=== PATIENT | male | born 1940 | race Caucasian/White ===

== ENCOUNTER 2018-07-23 08:22 | Inpatient (IN) | payer MEDICARE, OTHER ==
--- NOTE | 2018-07-15 16:46 | HP ---
HISTORY AND PHYSICAL: DATE OF ADMISSION/SURGERY: 07/23/18 DATE OF OFFICE VISIT: 07/15/18 SURGEON: Laura Suarez MD * (DICTATED BY PATTY OLVERA) PROCEDURE: Left total knee arthroplasty. CHIEF COMPLAINT: Left knee pain. HISTORY OF PRESENT ILLNESS: Mr. Carcamo is a 77-year-old gentleman with continued complaints of left knee pain. He has failed conservative treatment and elected to proceed with a left total knee arthroplasty. PAST MEDICAL HISTORY: Hypertension. PAST SURGICAL HISTORY: Left knee scope x2, right Achilles tendon repair, and nasal surgery. CURRENT MEDICATIONS: 1. Valsartan/hydrochlorothiazide 160/12.5 mg 2 tabs daily. 2. Amlodipine 5 mg a day. 3. Iron slow release. ALLERGIES: No known drug allergies. FAMILY HISTORY: Cancer. SOCIAL HISTORY: He is a 77-year-old gentleman, lives at [facility]. He does not smoke or use drugs. REVIEW OF SYSTEMS: A complete 14-point review of systems was reviewed with the patient. It was all negative or noncontributory. He denies history of DVT, PE , hepatitis, HIV, or anesthesia problems. PHYSICAL EXAMINATION GENERAL: He is well developed, well nourished, in no acute distress. He is alert and oriented x3. Pleasant mood and appropriate affect. VITAL SIGNS: He stands 73 inches tall, weighs 203 pounds. His blood pressure is 128/62, his heart rate is 72. MUSCULOSKELETAL: Left lower extremity: The skin is intact. There are no open wounds or abrasions. There is a moderate joint effusion of the left knee, some tenderness over the medial and lateral joint line. Range of motion is 5 to 115 degrees of flexion. He has a 2+ dorsalis pedis pulse. He is able to dorsiflex and plantarflex and he has intact sensation. ASSESSMENT AND PLAN: Mr. Carcamo is a 77-year-old gentleman with end-stage osteoarthritis of the left knee. He has failed conservative treatment and elected to proceed with a left total knee arthroplasty. The surgery is scheduled for 07/23/[address] Suarez discussed the risks and benefits of the surgery at today's visit and all of his questions were answered. He will follow up with Dr. Suarez 2 weeks after the surgery. PATTY OLVERA [id number]/[facility] #: [id number] UNITED HEALTH SERVICESRaegan
[~2018-07-23 08:22] MED LIST: Acetaminophen TAB* 325 MG PO ONE; Buffered Lidocaine 1% SYRIN* 1 ML/SYRINGE INTRADERM ONE; Famotidine IV* 10 MG/ML 2 ML (20 mg) IV ONE; Gabapentin CAP(*) 300 MG PO ONE; Lactated Ringers 1000 ML Bag* 1,000 ML IV SCH; Tranexamic Acid 1,000 MG in NS 0.9% 50 ML* (outpatient use) IV SCH; celeCOXIB CAP* 200 MG PO ONE
[2018-07-23] MEDS ORDERED: Famotidine IV* 10 MG/ML 2 ML (20 mg) ONE (08:49)
[2018-07-23] MEDS ORDERED: celeCOXIB CAP* 100 MG ONE (08:49)
[2018-07-23] MEDS ORDERED: Gabapentin CAP(*) 300 MG ONE (08:49)
[2018-07-23] MEDS ORDERED: Acetaminophen TAB* 325 MG ONE (08:49)
[2018-07-23] MEDS ORDERED: Dexamethasone IV* 4 MG/ML 1 ML (4 MG) ONE (08:54)
[2018-07-23] MEDS ORDERED: Propofol* 10 MG/ML 20 ML BTL ONE (08:54)
[2018-07-23] MEDS ORDERED: ROPIVACAINE 5 MG/ML 30 ML BTL (0.5%) ONE ×2 (08:54→10:47)
[2018-07-23] MEDS ORDERED: Ondansetron INJ* 2 MG/ML VIAL ONE (08:54)
[2018-07-23] MEDS ORDERED: fentaNYL* 50 MCG/ML 2 ML VIAL (100 MCG VIAL) ONE (08:54)
[2018-07-23] MEDS ORDERED: KETAMINE HCL* 50 MG/ML 10 ML VIAL ONE (08:54)
[2018-07-23] MEDS ORDERED: Lidocaine 2% PF * 5 ML VIAL ONE (08:54)
[2018-07-23] MEDS ORDERED: Midazolam* 1 MG/ML 10 ML VIAL (10 MG) ONE (08:55)
[2018-07-23] MEDS ORDERED: fentaNYL* 50 MCG/ML 2 ML VIAL (100 MCG VIAL) IV PRN (12:34)
[2018-07-23] MEDS ORDERED: Naloxone* 0.4 MG/ML 1 ML VIAL IV PRN (12:34)
[2018-07-23] MEDS ORDERED: Ondansetron INJ* 2 MG/ML VIAL IV PRN ×2 (12:34→13:43)
[2018-07-23] MEDS ORDERED: Cyclobenzaprine TAB* 10 MG PO PRN (13:43)
[2018-07-23] MEDS ORDERED: Magnesium Hydroxide LIQ* 30 ML UDC PO PRN (13:43)
[2018-07-23] MEDS ORDERED: Ondansetron TAB* 4 MG PO PRN (13:43)
[2018-07-23] MEDS ORDERED: oxyCODONE/Acetamin 5/325 MG* TAB PO PRN (13:43)
[2018-07-23] MEDS ORDERED: Bisacodyl SUPP* 10 MG SUPP PR PRN (13:43)
[2018-07-23] MEDS ORDERED: Morphine INJ* 2 MG/ML 1 ML SYRINGE (TWO MG - NEW SYRINGE VERSION) IV PRN (13:43)
[2018-07-23] MEDS ORDERED: Polyethylene Glycol 3350* 17 GM PACKET PO PRN (13:43)
[2018-07-23] MEDS ORDERED: diPHENhydraMINE IV* 50 MG/ML 1 ml VIAL (BENADRYL) IV PRN (13:43)
[2018-07-23] MEDS ORDERED: ceFAZolin 1 GM ADVAN(*) 1 GM in NS 0.9% 50 ML* 50 ML IVPB SCH (14:00)
--- NOTE | 2018-07-23 14:24 | CONSULT ---
Subjective Date of Service: 07/23/18 Interval History: Solo Carcamo is a 77 yo white male with significant PMHx of HTN who is postop day 0 s/p left total knee arthroplasty. He failed outpatient conservative management of severe osteoarthritis of left knee and therefore elected to have surgery. Hospital medicine was consulted for comanagement of his chronic medical conditions. Patient is in the PACU and is feeling well. He denies SOB, chest pain, visual changes, headache, and palpitations. Family History: Findings - Both father and mother with history of colon CA. Mother with hx of HTN. Social History: Findings - Patient is a retired employee of [employer]. Denies tobacco/alcohol/drug use. Past Medical History: Findings - Hypertension, osteoarthritis, iron deficiency anemia, BPH Review of Systems - Measurements Intake and Output: Intake and Output Last 24 Hours 07/21/18 07/22/18 07/23/18 07/24/18 06:59 06:59 06:59 06:59 Intake Total 1800 Output Total 650 Balance 1150 Weight 201 lb 9.6 oz Intake: IV Fluids 1800 LR 1800 Output: Hernandez 650 - Review of Systems Constitutional Symptoms: Negative: Fatigue, Fever Dermatology: Positive: Normal HEENT: Positive: Normal Eyes: Negative: Change in Vision, Double Vision Thyroid: Positive: Normal Pulmonary: Negative: Respiratory Distress, Shortness of Breath Cardiology: Negative: Chest Pain, Shortness of Breath, Palpitations Gastroenterology: Negative: Abdominal Pain, Nausea, Vomiting Genital - Urinary: Positive: Normal Musculoskeletal: Negative: Joint Pain Endocrinology: Positive: Normal Hematologic/Lymphatic: Positive: Anemia Neurology: Positive: Normal Psychiatry: Positive: Normal Objective Active Medications: Acetaminophen (Tylenol Tab*) 975 mg PO ONCE ONE Stop: 07/23/18 06:01 Last Admin: 07/23/18 09:00 Dose: 975 mg Acetaminophen (Tylenol Tab*) 975 mg PO Q8H [facility] Amlodipine Besylate (Norvasc Tab*) 5 mg PO QAM [facility] Apixaban (Eliquis*) 2.5 mg PO BID [facility] Bisacodyl (Dulcolax Supp*) 10 mg FL DAILY PRN PRN Reason: constipation Celecoxib (Celebrex Cap*) 200 mg PO ONCE ONE Stop: 07/23/18 06:01 Last Admin: 07/23/18 09:00 Dose: 200 mg Cyclobenzaprine HCl (Flexeril Tab*) 10 mg PO TID PRN PRN Reason: SPASMS Diphenhydramine HCl (Benadryl Iv*) 12.5 mg IV Q6H PRN PRN Reason: PRURITIS Docusate Sodium (Colace Cap*) 100 mg PO BID [facility] Famotidine (Pepcid Iv*) 20 mg IV ONCE ONE Stop: 07/23/18 06:01 Last Admin: 07/23/18 09:00 Dose: 20 mg Fentanyl Citrate (Fentanyl*) 25 mcg IV Q5M PRN PRN Reason: PAIN - MODERATE Gabapentin (Neurontin Cap(*)) 300 mg PO ONCE ONE Stop: 07/23/18 06:01 Last Admin: 07/23/18 09:00 Dose: 300 mg HCTZ/Valsartan (Diovan Hct 160/25(Nf)) 2 tab PO QAM [facility] Lactated Ringer's (Lactated Ringers 1000 Ml Bag*) 1,000 mls @ 125 mls/hr IV PER RATE [facility] Last Admin: 07/23/18 08:59 Dose: 125 mls/hr Tranexamic Acid 1,000 mg/ (Sodium Chloride) 60 mls @ 120 mls/hr IV ONCE Stop: 07/23/18 23:59 Cefazolin Sodium 1 gm/ Sodium (Chloride) 50 mls @ 200 mls/hr IVPB Q8H [facility] Stop: 07/24/18 06:14 Lactated Ringer's (Lactated Ringers 1000 Ml Bag*) 1,000 mls @ 100 mls/hr IV PER RATE [facility] Lactulose (Lactulose*) 30 ml PO Q6H PRN PRN Reason: constipation Lidocaine/Sodium Bicarbonate (Buffered Lidocaine 1% Syrin*) 0.2 ml INTRADERM ONCE ONE Stop: 07/22/18 15:04 Last Admin: 07/23/18 08:59 Dose: 0.2 ml Magnesium Hydroxide (Milk Of Magnesia Liq*) 30 ml PO BID [facility] Magnesium Hydroxide (Milk Of Magnesia Liq*) 30 ml PO Q6H PRN PRN Reason: constipation Morphine Sulfate (Morphine 4 Mg/Ml Vial (1 Ml)) 2 mg IV Q2H PRN PRN Reason: PAIN Naloxone HCl (Narcan*) 0.08 mg IV Q2M PRN PRN Reason: severe induced resp depression Ondansetron HCl (Zofran Inj*) 4 mg IV ONCE PRN PRN Reason: NAUSEA/VOMITING Ondansetron HCl (Zofran Inj*) 4 mg IV Q6H PRN PRN Reason: nausea Ondansetron HCl (Zofran Tab*) 4 mg PO Q6H PRN PRN Reason: NAUSEA Oxycodone HCl (Roxycodone Tab*) 10 mg PO Q4H PRN PRN Reason: SEVERE PAIN Oxycodone/Acetaminophen (Percocet 5/325 Tab*) 1 tab PO Q4H PRN PRN Reason: PAIN Oxycodone/Acetaminophen (Percocet 5/325 Tab*) 2 tab PO Q4H PRN PRN Reason: PAIN Polyethylene Glycol/Electrolytes (Miralax*) 17 gm PO DAILY PRN PRN Reason: Constipation Vital Signs - 8 hr 07/23/18 07/23/18 07/23/18 09:00 13:40 13:41 Temperature 98.2 F 97.0 F Pulse Rate 75 60 Respiratory 18 Rate Blood Pressure 162/94 124/67 (mmHg) O2 Sat by Pulse 99 95 Oximetry 07/23/18 07/23/18 07/23/18 13:45 13:51 13:55 Temperature Pulse Rate 56 60 56 Respiratory Rate Blood Pressure 114/62 119/64 119/64 (mmHg) O2 Sat by Pulse 94 98 96 Oximetry 07/23/18 07/23/18 14:00 14:01 Temperature Pulse Rate 58 60 Respiratory Rate Blood Pressure 121/76 (mmHg) O2 Sat by Pulse 97 98 Oximetry Oxygen Devices in Use Now: Nasal Cannula Appearance: Patient is laying comfortably in stretcher in PACU appearing in NAD Eyes: No Scleral Icterus, PERRLA Ears/Nose/Mouth/Throat: Mucous Membranes Moist Neck: NL Appearance and Movements; NL JVP Respiratory: Symmetrical Chest Expansion and Respiratory Effort, Clear to Auscultation Cardiovascular: NL Sounds; No Murmurs; No JVD, RRR Abdominal: - - abdomen soft, nondistended, nontender Extremities: No Clubbing, Cyanosis Skin: No Rash or Ulcers Neurological: Alert and Oriented x 3 Assessment/Plan - Billing Plan By Medical Problem: Solo Franco is a 77 yo male with significant PMHx of HTN who is s/p left TKA after failing conservative management of severe osteoarthritis of left knee. Hospital medicine has been consulted for comanagement of chronic medical conditions. 1. Hypertension- Patient had a spinal block during surgery. Patient has been normotensive in the PACU. Recommend holding valsartan/HCTZ until tomorrow. 2. hx of iron deficiency anemia- Resolved. Will monitor H&H 3. BPH- will monitor for urinary retention VTE PPX: per orthopedic surgery Diet: per orthopedic surgery Code Status: Full code Admission Status and Rationale: per orthopedic surgery Thank you for allowing us to participate in the care of this patient. We will follow along during this admission.
[2018-07-23] MEDS ORDERED: oxyCODONE/Acetamin 5/325 MG* TAB ONE (15:33)
[2018-07-23] MEDS: oxyCODONE/Acetamin 5/325 MG* TAB PO PRN ×2 (15:34→21:23)
[2018-07-23] MEDS: Lactated Ringers 1000 ML Bag* 1,000 ML IV SCH ×2 (15:35→23:58)
[2018-07-23] MEDS: Acetaminophen TAB* 325 MG PO SCH ×2 (15:52→23:33)
[2018-07-23] MEDS: Docusate CAP* 100 MG PO SCH (21:23)
[2018-07-23] MEDS: Magnesium Hydroxide LIQ* 30 ML UDC PO SCH (21:23)
[2018-07-23] MEDS: ceFAZolin 1 GM in Dextrose (*) 1 GM/50 ML BAG IVPB SCH (21:23)
[2018-07-23] MEDS: oxyCODONE TAB* 5 MG TAB PO PRN (23:58)
[2018-07-24] MEDS: oxyCODONE/Acetamin 5/325 MG* TAB PO PRN (02:58)
[2018-07-24] MEDS: ceFAZolin 1 GM in Dextrose (*) 1 GM/50 ML BAG IVPB SCH ×2 (04:09→12:32)
[2018-07-24] MEDS: Acetaminophen TAB* 325 MG PO SCH ×3 (05:22→16:53)
[2018-07-24] MEDS: oxyCODONE TAB* 5 MG TAB PO PRN (05:54)
[2018-07-24 07:19] LABS: Hematocrit 34 % (36-46); Hemoglobin 11.7 g/dL (14.0-18.0); Mean Platelet Volume 7.9 fL (7.4-10.4); Platelet Count 209 10^3/uL (150-450)
[2018-07-24 07:52] LABS: BUN/Creatinine Ratio 19.7 (8-20); Calcium 8.7 mg/dL (8.6-10.3); EGFR African American 119.7 (>60); EGFR Non-African American 98.9 (>60); Potassium 3.9 mmol/L (3.5-5.0)
[2018-07-24] MEDS ORDERED: Acetaminophen TAB* 325 MG PO SCH (08:00)
[2018-07-24] MEDS: Magnesium Hydroxide LIQ* 30 ML UDC PO SCH ×2 (08:24→20:08)
[2018-07-24] MEDS: Apixaban* 2.5 MG TAB PO SCH ×2 (08:25→20:06)
[2018-07-24] MEDS: Docusate CAP* 100 MG PO SCH ×2 (08:25→20:06)
[2018-07-24] MEDS: amLODIPine TAB* 5 MG PO SCH (08:25)
--- NOTE | 2018-07-24 08:58 | OP ---
OPERATIVE REPORT: DATE OF OPERATION: 07/23/18 DATE OF : 36 ATTENDING SURGEON: Laura Suarez MD. PASTING MACHINE OFFBEARER: PATTY Red. Ms. Carcamo did help throughout the procedure with preparation of the leg, wound retraction, manipul ation of the knee, and wound closure. ANESTHESIOLOGIST: Dr. Rodgers. ANESTHESIA: Spinal. PRE-OP DIAGNOSIS: Left severe end-stage degenerative osteoarthritis of the left knee joint. POST-OP DIAGNOSIS: Left severe end-stage degenerative osteoarthritis of the left knee joint. OPERATIVE PROCEDURE: Left total knee arthroplasty. TOURNIQUET TIME: 55 minutes. ESTIMATED BLOOD LOSS: 200 cc. COMPLICATIONS: None. SPECIMEN: Bone and cartilage from the left knee joint sent to pathology. HARDWARE: This is [employer] cemented total knee arthroplasty hardware. Two packages of Simpl ex bone cement. For the femur, a left size 7 LEGION posterior stabilized femoral component. For the tibia, size 7 left ARMEN II tibial baseplate. For the insert, an 11 mm posterior stabilized artic ular insert size 7/8. For the patella, a 38 mm three-peg all-poly patella. BRIEF HISTORY/INDICATION: Mr. Carcamo is a 77-year-old gentleman with years of increasingly severe left knee pain and varus deformity. Radiographs showed end- stage arthritis. He failed conservative treatment with anti-inflammatories, pain medications, physical therapy, and brace wear. Due to cont inued pain and decreased quality of life, he elected to undergo left total knee arthroplasty. Inform ed consent was obtained from the patient. He understood the risks of surgery included, but were not limited to bleeding, infection, damage to nearby structures, continued pain, need for further surgery , intraoperative fracture, nerve palsy, hardware failure or loosening, knee stiffness, loss of motion , anesthesia complications, stroke, heart attack, blood clot, and . He wished to proceed. INTRAOPERATIVE FINDINGS: Intraoperatively, the patient was noted to have extensive calcification jorge ng the infrapatellar tendon region. He had complete loss of cartilage in all 3 compartments with ext ensive osteophyte formation. He had significant varus deformity. DESCRIPTION OF PROCEDURE: Mr. Carcamo was identified in the preanesthesia unit. His left lower ext remity was marked as the correct operative side. Informed consent was signed and placed in the chart . He was taken to the operating room and placed under anesthesia. A Hernandez catheter was placed. Js rniquet was placed on the left thigh. The left lower extremity was prepped and draped in the usual s terile fashion. A preop time-out was made to correctly identify the patient's side and site. Approp riate perioperative antibiotics were given within 1 hour of incision. A tourniquet was inflated and total tourniquet time for this procedure was 55 minutes. A midline incision was made and carried rhonda n to the extensor mechanism. New #10 blade was used to make a standard medial parapatellar arthrotom y and patella was subluxed laterally. Electrocautery was used to subperiosteally elevate the soft ti ssue off the superomedial tibia to the midsagittal plane. Calcified fat pad was carefully excised. The knee was flexed up. A drill was used to enter the distal femur. Intramedullary distal femoral cutting guide was pinned o n the distal femur. Oscillating saw was used to make the distal femoral cut. The external rotation guide was pinned on the distal femur. Distal femur was sized to a size 7. Size 7 multi-cutting jig was pinned on the distal femur. Oscillating saw was used to make the 4 chamfer cuts. The PCL was co mpletely released. The tibia was subluxed anteriorly. Extramedullary tibial cutting guide was pinne d on the tibia. Oscillating saw was used to make the proximal tibial cut perpendicular to the mechan ical axis of the tibia. The bone was carefully removed. The knee was brought out into full extensio n. The spacer block had good fit with the knee in full extension. Medial and lateral ligaments were well balanced. Flexion and extension gaps were well balanced. The knee was flexed up. A lamina boat motor mechanic was placed both medially and laterally. Any remaining meni scus was carefully removed using electrocautery. A curved osteotome was used to remove any posterior osteophytes. Tibial tray and drop yue were placed and once again confirmed satisfactory tibial cut. A size 7 left femoral trial was impacted onto the distal femur and had excellent fit and stability. Box for the posterior stabilized implant was prepared using a reamer and box cut osteotome. Size 7 tibial tray trial with an 11 mm insert trial was placed. The knee was taken through a range of aravind on. The knee had full extension to 130 degrees of flexion. There was satisfactory patellofemoral tr acking. The patella was everted; 9 mm of patellar bone and cartilage was carefully removed using an oscillati ng saw. The patella was sized to a size 38. Three peg holes were drilled through size 38 guide. A 38 trial patella was placed and the knee was taken through a range of motion. There was satisfactory patellofemoral tracking. All trials were carefully removed. The tibia was subluxed anteriorly and s ized to a size 7. The proximal tibia was prepared using a size 7 keel punch. All bony cut surfaces were copiously irrigated with sterile saline and dried. Final implants were cemented into place star ting with the tibia followed by the femur and last the patella. An 11 mm insert trial was placed and the knee was brought out into full extension. Tourniquet was turned down. The knee was copiously irrigated with sterile saline. Electrocautery was used to obtain meticulous hemostasis. Once the cement had fully cured, the insert trial was removed . Any excess cement was carefully removed from around the capsule and hardware. An 11 mm posterior stabilized articular insert size 7/8 was locked into position on the tibial tray. Stability of the i nsert was checked and rechecked and noted to be stable. The extensor mechanism was closed using inte rrupted #1 Vicryl. The rest of the incision was closed in a layered fashion using 0 and 2-0 Vicryls. Skin was closed using running 3-0 nylon suture. Sterile Xeroform, 4x4s, and Webril were used to cov er the incision. Eulalio wrap and cold pack were placed over this. The patient's anesthesia was reverse d without difficulty. He was taken to the PACU in stable condition. Intended weightbearing will be weightbearing as tolerated. [id number]/[facility] #: [id number]
[2018-07-24] MEDS ORDERED: Valsartan/HCTZ 160/25(NF) TAB PO SCH (09:00)
--- NOTE | 2018-07-24 09:56 | PN ---
Subjective Date of Service: 07/24/18 Interval History: Pt seen and examined. Meds and labs reviewed. CC: N/A ROS: Denied GALLEGOS/dizziness, F/C, N/V, CP, SOB, increased cough, sputum production , abd pain, diarrhea, constipation, dysuria, myalgias, arthralgias, throat pain , and new skin lesions. The rest of the 14 point ROS are unremarkable. PHYSICAL EXAM: GEN APPEARANCE: Awake, not in acute distress HEENT: NC/AT, PERRLA, moist oral mucosa, (-) throat erythema NECK: Soft, supple, (-) cervical LAD, (-)JVD HEART: S1S2 WNL, RRR, No MRG CHEST: CTA, BL, GAE, No W/R/R ABD: Soft, ND/NT, NABS 4x Q EXT: No C/C/LLE cdi SKIN: Warm to touch PSYCH: No active psychosis, hallucinations, depression, SI/HI Family History: Findings - Both father and mother with history of colon CA. Mother with hx of HTN. Social History: Findings - Patient is a retired employee of the [employer]. Denies tobacco/alcohol/drug use. Past Medical History: Findings - Hypertension, osteoarthritis, iron deficiency anemia, BPH Objective Active Medications: Acetaminophen (Tylenol Tab*) 975 mg PO 0100,0900,1700 [facility] Last Admin: 07/24/18 09:27 Dose: 975 mg Amlodipine Besylate (Norvasc Tab*) 5 mg PO QAM [facility] Last Admin: 07/24/18 08:25 Dose: 5 mg Apixaban (Eliquis*) 2.5 mg PO BID [facility] Last Admin: 07/24/18 08:25 Dose: 2.5 mg Bisacodyl (Dulcolax Supp*) 10 mg PA DAILY PRN PRN Reason: constipation Cyclobenzaprine HCl (Flexeril Tab*) 10 mg PO TID PRN PRN Reason: SPASMS Diphenhydramine HCl (Benadryl Iv*) 12.5 mg IV Q6H PRN PRN Reason: PRURITIS Docusate Sodium (Colace Cap*) 100 mg PO BID [facility] Last Admin: 07/24/18 08:25 Dose: 100 mg Lactated Ringer's (Lactated Ringers 1000 Ml Bag*) 1,000 mls @ 100 mls/hr IV PER RATE [facility] Last Admin: 07/23/18 23:58 Dose: 100 mls/hr Cefazolin Sodium/Dextrose (Kefzol 1 Gm In Dextrose Duplex (*)) 1 gm in 50 mls @ 200 mls/hr IVPB Q8H [facility] Stop: 07/24/18 12:14 Last Admin: 07/24/18 04:09 Dose: 200 mls/hr Lactulose (Lactulose*) 30 ml PO Q6H PRN PRN Reason: constipation Magnesium Hydroxide (Milk Of Magnesia Liq*) 30 ml PO BID [facility] Last Admin: 07/24/18 08:24 Dose: 30 ml Magnesium Hydroxide (Milk Of Magnesia Liq*) 30 ml PO Q6H PRN PRN Reason: constipation Morphine Sulfate (Morphine Inj (Syringe))*) 2 mg IV Q2H PRN PRN Reason: PAIN Ondansetron HCl (Zofran Inj*) 4 mg IV Q6H PRN PRN Reason: nausea Ondansetron HCl (Zofran Tab*) 4 mg PO Q6H PRN PRN Reason: NAUSEA Oxycodone HCl (Roxycodone Tab*) 10 mg PO Q4H PRN PRN Reason: SEVERE PAIN Last Admin: 07/24/18 05:54 Dose: 10 mg Oxycodone/Acetaminophen (Percocet 5/325 Tab*) 1 tab PO Q4H PRN PRN Reason: PAIN Oxycodone/Acetaminophen (Percocet 5/325 Tab*) 2 tab PO Q4H PRN PRN Reason: PAIN Last Admin: 07/24/18 02:58 Dose: 2 tab Polyethylene Glycol/Electrolytes (Miralax*) 17 gm PO DAILY PRN PRN Reason: Constipation Vital Signs - 8 hr 07/24/18 07/24/18 07/24/18 02:40 02:58 03:07 Temperature 97.4 F Pulse Rate 68 Respiratory 16 18 16 Rate Blood Pressure 133/76 (mmHg) O2 Sat by Pulse 94 Oximetry 07/24/18 07/24/18 07/24/18 05:43 05:54 08:16 Temperature 99.1 F Pulse Rate 65 Respiratory 16 16 16 Rate Blood Pressure 116/52 (mmHg) O2 Sat by Pulse 94 Oximetry 07/24/18 09:31 Temperature Pulse Rate Respiratory 18 Rate Blood Pressure (mmHg) O2 Sat by Pulse Oximetry Oxygen Devices in Use Now: None Result Diagrams: 07/24/18 06:55 07/24/18 06:55 Assess/Plan/Problems-Billing Plan By Medical Problem: Solo Franco is a 77 yo male with significant PMHx of HTN who is s/p left TKA after failing conservative management of severe osteoarthritis of left knee. Hospital medicine has been consulted for comanagement of chronic medical conditions. 1. Hypertension- Patient had a spinal block during surgery. Patient has been normotensive in the PACU. Recommend holding valsartan/HCTZ until tomorrow. 2. hx of iron deficiency anemia- Resolved. Will monitor H&H 3. BPH- will monitor for urinary retention VTE PPX: per orthopedic surgery Diet: per orthopedic surgery Code Status: Full code Admission Status and Rationale: per orthopedic surgery Thank you for allowing us to participate in the care of this patient. We will follow along during this admission. - Patient Problems (1) Osteoarthritis of left knee Current Visit: Yes Status: Acute Code(s): M17.12 - UNILATERAL PRIMARY OSTEOARTHRITIS, LEFT KNEE SNOMED Code(s): 260237076459713 Comment: -S/P L. knee total arthroplasty POD#1 -Will await/defer w/ortho for further management (2) HTN (hypertension) Current Visit: Yes Status: Acute Code(s): I10 - ESSENTIAL (PRIMARY) HYPERTENSION SNOMED Code(s): 48321080 Comment: -Well-controlled -Continue Amlodipine -Continue to hold Valsartan/HCTZ until tomorrow (unless too low to start) (3) LAZARO (iron deficiency anemia) Current Visit: Yes Status: Acute Code(s): D50.9 - IRON DEFICIENCY ANEMIA, UNSPECIFIED SNOMED Code(s): 75731438 Comment: -May continue with Ferrous sulfate PO meds in 1-2 days as tolerated (4) DVT prophylaxis Current Visit: Yes Status: Acute Code(s): LCF1110 - SNOMED Code(s): 742912802 Comment: -On Eliquis Status and Disposition: -Pending PT eval -Defer with ortho -At this point, there are no active medical issues and chronic medical issues are well controlled. Pt may go back on home meds as tolerated prior to D/C unless with contraindication -Will sign-off from pts case at this time. Please call us if with questions. It has been a pleasure to follow Mr. Carcamo with you.
--- NOTE | 2018-07-24 11:28 | PN ---
Progress Note - Progress Note Date of Service: 07/24/18 SOAP: Subjective: []Pt seen and examined at bedside. He feels very well, pain is controlled with tylenol alone. Denies CP, SOB, dizziness, nausea. Objective: []General: Well appearing, NAD LLE: Left knee dressing CDI with cryo cuff in use, thigh is soft, DF/PF intact, DP2+, sensation intact to light touch distally Calves supple and nontender without erythema, edema or palpable cords Assessment: []POD [address] Suarez Plan: []WBAT PT/OT eliquis 2.5 mg po bid x 30 days Will DC to -cent[facility] today or tomorrow. Eval after PT to determine readiness Vital Signs Temp 99.1 F 07/24/18 08:16 Pulse 65 07/24/18 08:16 Resp 18 07/24/18 09:31 BP 116/52 07/24/18 08:16 Pulse Ox 94 07/24/18 08:16 Intake & Output 07/23/18 07/24/18 07/24/18 18:59 06:59 18:59 Intake Total 2800 2415 1645 Output Total 650 2875 300 Balance 2150 -460 1345 Weight 201 lb 9.6 oz Intake: IV Fluids 1999 1095 990 ABX - CEFAZOLIN 110 LR 2000 985 990 IVPB 55 ABX - CEFAZOLIN 55 Oral 800 1320 600 Output: Urine 175 300 Hernandez 650 2700 Other: # Bowel Movements 0 Laboratory Last Values Hgb 11.7 g/dL (14.0-18.0) L 07/24/18 06:55 Hct 34 % (36-46) L 07/24/18 06:55 Plt Count 209 10^3/uL (150-450) 07/24/18 06:55 MPV 7.9 fL (7.4-10.4) 07/24/18 06:55 Sodium 137 mmol/L (135-145) 07/24/18 06:55 Potassium 3.9 mmol/L (3.5-5.0) 07/24/18 06:55 Chloride 102 mmol/L (101-111) 07/24/18 06:55 Carbon Dioxide 29 mmol/L (22-32) 07/24/18 06:55 Anion Gap 6 mmol/L (2-11) 07/24/18 06:55 BUN 15 mg/dL (6-24) 07/24/18 06:55 Creatinine 0.76 mg/dL (0.67-1.17) 07/24/18 06:55 Est GFR ( Amer) 119.7 (>60) 07/24/18 06:55 Est GFR (Non-Af Amer) 98.9 (>60) 07/24/18 06:55 BUN/Creatinine Ratio 19.7 (8-20) 07/24/18 06:55 Glucose 128 mg/dL (70-100) H 07/24/18 06:55 Calcium 8.7 mg/dL (8.6-10.3) 07/24/18 06:55
[2018-07-25] MEDS: Acetaminophen TAB* 325 MG PO SCH ×2 (01:08→08:49)
[2018-07-25 05:50] LABS: Hematocrit 31 % (36-46); Hemoglobin 10.7 g/dL (14.0-18.0); Mean Corpuscular HGB Conc 34 g/dL (31-36); Mean Corpuscular Hemoglobin 31 pg (27-31); Mean Corpuscular Volume 89 fL (80-94); Mean Platelet Volume 8.1 fL (7.4-10.4); Platelet Count 178 10^3/uL (150-450); Red Blood Count 3.52 10^6 /uL (4.18-5.48); Red Cell Distribution Width 14 % (10.5-15); White Blood Count 8.2 10^3/uL (3.5-10.8)
[2018-07-25 06:14] LABS: Albumin 3.4 g/dL (3.2-5.2); Albumin/Globulin Ratio 1.5 (1-3); BUN/Creatinine Ratio 19.8 (8-20); Calcium 8.2 mg/dL (8.6-10.3); EGFR African American 111.2 (>60); EGFR Non-African American 91.9 (>60); Globulin 2.2 g/dL (2-4); Magnesium 2.2 mg/dL (1.9-2.7); Phosphorus 2.3 mg/dL (2.5-5.0); Potassium 3.8 mmol/L (3.5-5.0); Total Bilirubin 0.3 mg/dL (0.2-1.0); Total Protein 5.6 g/dL (6.4-8.9)
[2018-07-25] MEDS ORDERED: Potassium Phosphate IV* 10 MMOLE in NS 0.9% 250 ML* 250 ML IVPB ONE (08:30)
[2018-07-25] MEDS: Magnesium Hydroxide LIQ* 30 ML UDC PO SCH (08:36)
[2018-07-25] MEDS: amLODIPine TAB* 5 MG PO SCH (08:49)
[2018-07-25] MEDS: Apixaban* 2.5 MG TAB PO SCH (08:49)
[2018-07-25] MEDS: oxyCODONE TAB* 5 MG TAB PO PRN ×2 (08:50→12:59)
[2018-07-25] MEDS: Docusate CAP* 100 MG PO SCH (08:50)
--- NOTE | 2018-07-25 11:00 | PN ---
Progress Note - Progress Note Date of Service: 07/25/18 SOAP: Subjective: []Pt seen at bedside. He feels very well, pain is rated 3/10. He desires DC back to [facility], though at [facility] house rather than his independent living. Denies CP , SOB, dizziness, nausea. Objective: []eneral: Well appearing, NAD LLE: Left knee dressing changed, incision CDI with cryo cuff in use, thigh is soft, DF/PF intact, DP2+, sensation intact to light touch distally Calves supple and nontender without erythema, edema or palpable cords Assessment: []POD [address] Suarez Plan: []WBAT PT/OT eliquis 2.5 mg po bid x 30 days Will DC to [facility] today Vital Signs Temp 98.8 F 07/25/18 08:23 Pulse 79 07/25/18 08:23 Resp 18 07/25/18 08:50 BP 135/60 07/25/18 08:23 Pulse Ox 94 07/25/18 08:23 Intake & Output 07/24/18 07/25/18 07/25/18 18:59 06:59 18:59 Intake Total 2120 740 Output Total 300 730 250 Balance 1820 10 -250 Intake: IV Fluids 1010 LR 1010 IVPB 110 ABX - CEFAZOLIN 110 Oral 1000 740 Output: Urine 300 730 250 Other: Estimated Void Medium Large # Bowel Movements 0 # Voids 2 1 Laboratory Last Values WBC 8.2 10^3/uL (3.5-10.8) 07/25/18 05:12 RBC 3.52 10^6 /uL (4.18-5.48) L 07/25/18 05:12 Hgb 10.7 g/dL (14.0-18.0) L 07/25/18 05:12 Hct 31 % (36-46) L 07/25/18 05:12 MCV 89 fL (80-94) 07/25/18 05:12 MCH 31 pg (27-31) 07/25/18 05:12 MCHC 34 g/dL (31-36) 07/25/18 05:12 RDW 14 % (10.5-15) 07/25/18 05:12 Plt Count 178 10^3/uL (150-450) 07/25/18 05:12 MPV 8.1 fL (7.4-10.4) 07/25/18 05:12 Sodium 140 mmol/L (135-145) 07/25/18 05:12 Potassium 3.8 mmol/L (3.5-5.0) 07/25/18 05:12 Chloride 103 mmol/L (101-111) 07/25/18 05:12 Carbon Dioxide 30 mmol/L (22-32) 07/25/18 05:12 Anion Gap 7 mmol/L (2-11) 07/25/18 05:12 BUN 16 mg/dL (6-24) 07/25/18 05:12 Creatinine 0.81 mg/dL (0.67-1.17) 07/25/18 05:12 Est GFR ( Amer) 111.2 (>60) 07/25/18 05:12 Est GFR (Non-Af Amer) 91.9 (>60) 07/25/18 05:12 BUN/Creatinine Ratio 19.8 (8-20) 07/25/18 05:12 Glucose 123 mg/dL (70-100) H 07/25/18 05:12 Calcium 8.2 mg/dL (8.6-10.3) L 07/25/18 05:12 Phosphorus 2.3 mg/dL (2.5-5.0) L 07/25/18 05:12 Magnesium 2.2 mg/dL (1.9-2.7) 07/25/18 05:12 Total Bilirubin 0.30 mg/dL (0.2-1.0) 07/25/18 05:12 AST 15 U/L (13-39) 07/25/18 05:12 ALT 6 U/L (7-52) L 07/25/18 05:12 Alkaline Phosphatase 55 U/L (34-104) 07/25/18 05:12 Total Protein 5.6 g/dL (6.4-8.9) L 07/25/18 05:12 Albumin 3.4 g/dL (3.2-5.2) 07/25/18 05:12 Globulin 2.2 g/dL (2-4) 07/25/18 05:12 Albumin/Globulin Ratio 1.5 (1-3) 07/25/18 05:12
--- NOTE | 2018-07-25 11:04 | DS ---
Orthopedic Discharge Summary - Discharge Summary Date of Admission:07/23/18 Date of Discharge: 07/25/18 Date of Surgery: 07/23/18 Attending Orthopedic Provider: Dr Suarez Pre-operative Diagnosis: left knee arthritis Operative Procedure: left total knee arthroplasty History: WM KLEIN is a 77 year old M with years of increasingly severe left knee pain. Patient has failed conservative management and has elected to undergo a left total knee replacement Hospital Course: WM was admitted to [facility] on 07/23/18. Patient underwent a left total knee replacement without complication followed by a brief recovery in PACU and transfer to the Short Stay Surgical Unit in stable condition. Our hospitalist service, physical therapy and occupational therapy also participated in this patients care. Post-op day 1: patient was alert and in no acute distress. Dressing was clean, dry and intact. Operative extremity dorsiflexion and plantarflexion intact, sensation intact to light touch distally, DP2+. Post-op day two: dressing was changed, incision was clean , dry and intact. Patient was deemed to be medically and orthopedically stable for discharge to [facility]. Physical therapy goals were met. Discharge Medications Medication Instructions Recorded Confirmed Type amLODIPine TAB* [Norvasc 5 mg TAB*] 5 mg PO QAM 05/11/14 07/23/18 History Ferrous Sulfate [Slow Release Iron] 143 mg PO QAM 07/15/18 07/23/18 History Valsartan/Hydrochlorothiazide 2 tab PO QAM 07/22/18 07/23/18 History [Valsartan-Hctz 160-25 mg Tab] Acetaminophen TAB* [Tylenol TAB*] 975 mg PO 0100,0900,1700 tab 07/25/18 Rx Apixaban* [Eliquis*] 2.5 mg PO BID tab 07/25/18 Rx Docusate CAP* [Colace Cap*] 100 mg PO BID cap 07/25/18 Rx oxyCODONE/Acetamin 5/325 MG* 1 tab PO Q4H PRN tab MDD 10 07/25/18 Rx [Percocet 5/325 TAB*] oxyCODONE/Acetamin 5/325 MG* 2 tab PO Q4H PRN tab MDD 10 07/25/18 Rx [Percocet 5/325 TAB*] Discharge Instructions DC to [facility] Bearing as tolerated Wound Care: OK to shower on post-op day 3, no bathing/ swimming/ submerging wound. Use gentle soap, pat dry. Cover with gauze, ISHMAEL wrap or tape. Call Orthopedic office for increased drainage, redness, increased pain, or fever. Go to ER with shortness of breath or chest pain. Diet: Regular diet, increase fluids and fiber to prevent constipation. Continue to use stool softeners, call office if no bowel motion within 48 hours. - Continue physical therapy and occupational therapy exercises as shown. - nurse to do wound checks. - Eliquis- 2.5mg twice daily x 1 month - Pain control with: Percocet 5/325 mg 1-2 tabs by mouth every 4-6 hours as needed for pain. Maximum of 10 tabs per day Please note that percocet contains tylenol (acetaminophen). Maximum daily dose of tylenol is 4000 mg from all sources. - Antibiotics required prior to any dental work. FOLLOW UP: Follow up with Dr. Suarez Within 10-14 days, call for appointment Please call our office with any questions or concerns ([phone])
[2018-07-25 12:23] VITALS: BP 158/50
== END 2018-07-25 15:30 | DRG 470 ==
LOC: AA 08:22 → SSU 15:28
PROVIDERS: ADMIT Orthopaedic Surgery Adult Reconstructive Orthopaedic Surgery; ATTEND Orthopaedic Surgery Adult Reconstructive Orthopaedic Surgery
PROC: 0SRD0J9 Replacement of Left Knee Joint with Synthetic Substitute, Cemented, Open Approach (ICD-10-PCS; principal; 2018-07-23 11:00)
DX: M17.12 Unilateral primary osteoarthritis, left knee (principal); I10 Essential (primary) hypertension; M25.462 Effusion, left knee; N40.0 Benign prostatic hyperplasia without lower urinary tract symptoms; M35.3 Polymyalgia rheumatica; M21.162 Varus deformity, not elsewhere classified, left knee; M25.762 Osteophyte, left knee; M48.061 Spinal stenosis, lumbar region without neurogenic claudication; N20.0 Calculus of kidney; M11.261 Other chondrocalcinosis, right knee; D50.9 Iron deficiency anemia, unspecified; Z81.8 Family history of other mental and behavioral disorders; Z82.49 Family history of ischemic heart disease and other diseases of the circulatory system; Z80.8 Family history of malignant neoplasm of other organs or systems; Z80.0 Family history of malignant neoplasm of digestive organs; Z88.0 Allergy status to penicillin
CPT/HCPCS: 36415; 80048; 80053; 83735; 84100; 85014; 85018; 85027; 85049; A9270-GY; C1776; G8978-GP-CJ; G8980-GP-CI; G8987-GO-CJ; G8988-GO-CI; J0690; J1100; J2250; J2405; J2704; J2795; J3010

== ENCOUNTER 2018-08-28 20:53 | Emergency (ER) | payer MEDICARE, OTHER ==
[2018-08-28 21:10] VITALS: BP 142/54
[2018-08-28] MEDS ORDERED: ceFAZolin 500 MG VIAL(*) 500 MG VIAL IVPB ONE (21:32)
--- NOTE | 2018-08-28 21:38 | UC ---
HPI Febrile Illness - HPI Summary HPI Summary: 77 yo male 5 weeks s/p left knee replacement presents here with the onset of f/ c and malaise about 2 hours ago only mild knee pain no URI symptoms no cough/CP or SOB no UTI symptoms - History of Current Complaint Chief Complaint: UCGeneralIllness Time Seen by Provider: 08/28/18 21:07 Hx Obtained From: Patient Timing: Constant Initial Severity: Mild Current Severity: Mild Pain Intensity: 0 Pain Scale Used: 0-10 Numeric Aggravating Factors: Nothing Alleviating Factors: Nothing Associated Signs and Symptoms: Chills, Recent Surgery, Swelling - left knee - Risk Factors Pseudomonas Risk Factors: Repeated Antibiotics Past 3 months - Additional Pertinent History Primary Care Physician: [id number] - Allergy/Home Medications Allergies/Adverse Reactions: Allergies Allergy/AdvReac Type Severity Reaction Status Date / Time No Known Allergies Allergy Verified 08/28/18 21:10 Home Medications: Home Medications Acetaminophen TAB* [Tylenol TAB*] 1,000 mg PO BID 08/28/18 [History] PMH/Surg Hx/FS Hx/Imm Hx Previously Healthy: Yes Cardiovascular History: Hypertension GI/ History: Kidney Stones, Other - pyelo - Surgical History Surgical History: Yes Surgery Procedure, Year, and Place: left knee arthroplasty 1957. right achiles tendon repair x2- 1958,1959. stent for kidney stone 1994. left knee skin graft approx - Family History Known Family History: Positive: Hypertension - Social History Alcohol Use: None Substance Use Type: None Smoking Status (MU): Never Smoked Tobacco Have You Smoked in the Last Year: No - Immunization History Most Recent Influenza Vaccination: 2018 Most Recent Pneumonia Vaccination: up to date Review of Systems All Other Systems Reviewed And Are Negative: Yes Constitutional: Positive: Fever, Chills, Fatigue Skin: Positive: Negative Eyes: Positive: Negative ENT: Positive: Negative Respiratory: Positive: Negative Cardiovascular: Positive: Negative Gastrointestinal: Positive: Negative Genitourinary: Positive: Negative Motor: Positive: Negative Neurovascular: Positive: Negative Musculoskeletal: Positive: Arthralgia - 0-1/10, Edema - left knee red/warm and swollen Neurological: Positive: Negative Psychological: Positive: Negative Physical Exam Triage Information Reviewed: Yes Appearance: Well-Appearing, No Pain Distress, Well-Nourished Vital Signs: Initial Vital Signs Temp 102.9 F 08/28/18 21:03 Pulse 99 08/28/18 21:03 Resp 18 08/28/18 21:03 BP 142/54 08/28/18 21:03 Pulse Ox 99 08/28/18 21:03 Vital Signs Reviewed: Yes Eyes: Positive: Conjunctiva Clear ENT: Positive: Hearing grossly normal. Negative: Nasal congestion, Nasal drainage, Tonsillar swelling, Tonsillar exudate, Hoarse voice, Sinus tenderness Dental: Negative: Abscess @ Neck: Positive: Supple, Nontender, No Lymphadenopathy Respiratory: Positive: Lungs clear, Normal breath sounds, No respiratory distress, No accessory muscle use Cardiovascular: Positive: RRR Abdomen Description: Positive: Nontender, No Organomegaly, Soft Bowel Sounds: Positive: Present Musculoskeletal: Positive: Edema @ - left knee/red and warm Psychological Exam: Normal Skin Exam: Normal Diagnostics - Laboratory Lab Results: UA ++ leuks Course/Dx - Course Course Of Treatment: discussed with Dr. Suarez will draw BC x 2 and give pt a dose of ancef IV prior to transfer [place] [facility] [place]...D?W ED attending D/W Dr. Suarez - Diagnoses Provider Diagnosis: Febrile illness, acute, Infection of left knee, Pyuria Discharge - Sign-Out/Discharge Documenting (check all that apply): Patient Departure All imaging exams completed and their final reports reviewed: No Studies - Discharge Plan Condition: Stable Disposition: TRANS HIGHER LVL OF CARE FAC - Billing Disposition and Condition Condition: STABLE Disposition: Trans Higher Lvl of Care Fac
[2018-08-28] MEDS ORDERED: Acetaminophen TAB* 325 MG PO ONE (21:48)
== END 2018-08-28 23:07 | disposition short-term general hospital (02) ==
LOC: UCEAST 20:53
DX: R50.9 Fever, unspecified (principal); T84.54XA Infection and inflammatory reaction due to internal left knee prosthesis, initial encounter; Z96.652 Presence of left artificial knee joint; N39.0 Urinary tract infection, site not specified; I10 Essential (primary) hypertension; Z87.442 Personal history of urinary calculi
CPT/HCPCS: 81003; 87086; 96365; 99213; A9270-GY; G0463; J0690

== ENCOUNTER 2018-08-28 23:39 | Emergency (ER) | payer MEDICARE, OTHER ==
[2018-08-28] MEDS ORDERED: NS 0.9% 1000 ML** 1,000 ML IV ONE (23:48)
--- NOTE | 2018-08-28 23:54 | ED ---
Lower Extremity - HPI Summary HPI Summary: Pt is a 77 y/o male brought in by EMS who presents to the ED c/o fever. Around 18:30 he began having a fever, malaise, and redness and swelling to his left knee. Pt reports mild pain to his knee rated a 1/10 in severity. He had a left knee replacement by Dr. Suarez 5 weeks ago. He was taking Eliquis s/p surgery but stopped one week ago. Pt was sent here from for further evaluation, and he was given IV Ancef there. He denies any N/V/D, CP, or SOB. - History of Current Complaint Chief Complaint: EDExtremityLower Stated Complaint: "KNEE INFECTION" PER EMS Time Seen by Provider: 08/28/18 23:47 Hx Obtained From: Patient, EMS, Medical Records Mechanism Of Injury: Other - No injury Onset/Duration: Hours - 18:30 Severity Currently: Mild Pain Intensity: 1 Pain Scale Used: 0-10 Numeric Timing: Constant Location: Is Discrete @ - left knee Associated Signs And Symptoms: Positive: Swelling, Redness, Knee Pain Related History: Other - s/p L knee replacement - Allergies/Home Medications Allergies/Adverse Reactions: Allergies Allergy/AdvReac Type Severity Reaction Status Date / Time No Known Allergies Allergy Verified 08/28/18 21:10 PMH/Surg Hx/FS Hx/Imm Hx Endocrine/Hematology History: Reports: Hx Anemia - slow release iron Cardiovascular History: Reports: Hx Hypertension - controlled with meds Denies: Hx Atrial Fibrillation History: Reports: Hx Kidney Infection - 2014, Hx Kidney Stones - hx of 1995 or 1997 approx Musculoskeletal History: Reports: Hx Arthritis - knee, poly-myalgia rhuematica, Hx Joint Replacement - L knee, Other Musculoskeletal History - polydromic pseudo gout Sensory History: Reports: Hx Contacts or Glasses Denies: Hx Hearing Aid Opthamlomology History: Reports: Hx Contacts or Glasses - Cancer History Hx Chemotherapy: No - Surgical History Surgery Procedure, Year, and Place: left knee arthroplasty 1957. right achiles tendon repair x2- 1958,1959. stent for kidney stone 1994. left knee skin graft approx. left knee replacement June 2018 Hx Anesthesia Reactions: No Infectious Disease History: No Infectious Disease History: Denies: Hx Clostridium Difficile, Hx Hepatitis, Hx Human Immunodeficiency Virus (HIV), Hx of Known/Suspected MRSA, Hx Shingles, Hx Tuberculosis, Hx Known/ Suspected VRE, Hx Known/Suspected VRSA, History Other Infectious Disease, Traveled Outside the [place] in Last 30 Days - Family History Known Family History: Positive: Hypertension - Social History Alcohol Use: None Hx Substance Use: No Substance Use Type: Reports: None Hx Tobacco Use: No Smoking Status (MU): Never Smoked Tobacco Have You Smoked in the Last Year: No Review of Systems Positive: Fever, Other - malaise Negative: Chest Pain Negative: Shortness Of Breath Negative: Vomiting, Diarrhea, Nausea Positive: Arthralgia - L knee, Other - left knee red swollen All Other Systems Reviewed And Are Negative: Yes Physical Exam - Summary Physical Exam Summary: Appearance: well appearing, no pain distress Skin: warm, dry, reflects adequate perfusion, fresh intact surgical scar on left knee Head/face: normal Eyes: EOMI, JASWANT ENT: mucous membranes moist Neck: supple, non-tender Respiratory: CTA, breath sounds present Cardiovascular: regular rate, irregularly irregular rhythm, pulses symmetrical Abdomen: non-tender, soft Bowel Sounds: present Musculoskeletal: strength/ROM intact, effusion to left knee that is hot, red, and tender Neuro: normal, sensory motor intact, A&Ox3 Triage Information Reviewed: Yes Vital Signs On Initial Exam: Initial Vitals Pulse Pulse Ox 68 98 08/28/18 23:44 08/28/18 23:44 Vital Signs Reviewed: Yes Procedures - Procedure Summary Procedure Summary: Left Knee Aspiration: left knee slightly flexed, cleaned with Chloraprep, superiolateral approach, 2 cc of 1% Lidocaine given, aspirated 15 cc of bloody synovial fluid via 18 gauge needle, dressed w band-aid, specimen sent to lab for analysis. Patient tolerated this well without complication. Diagnostics - Vital Signs Vital Signs Temp Pulse Resp BP Pulse Ox 08/28/18 23:48 71 121/47 98 08/28/18 23:45 100.7 F 71 18 121/47 98 08/28/18 23:44 68 98 - Laboratory Result Diagrams: 08/28/18 22:18 08/28/18 22:18 Lab Statement: Any lab studies that have been ordered have been reviewed, and results considered in the medical decision making process. - Radiology CXR Radiology Interpretation Completed By: ED Physician Summary of Radiographic Findings: No acute process. Pending official radiology report. Knee XR Radiology Interpretation Completed By: ED Physician Summary of Radiographic Findings: No acute process. Pending official radiology report. - EKG 00:15 Cardiac Rate: NL - 83 bpm EKG Rhythm: Sinus Rhythm ST Segment: Normal Summary of EKG Findings: Nl axis, RBBB, PVC Lower Extremity Course/Dx - Course Course Of Treatment: Nurse's notes reviewed. The patient had fever and redness , swelling and warmth of his postoperative left knee. I discussed the case with the orthopedist who wished to have me do the tap here. 15 cc of bloody fluid was obtained from the joint space. WBC in this was not elevated. This was mostly blood. This is likely a complication of the Eliquis. There is some redness in the skin which may be cellulitis. He had leukocyte esterase in the urine but has no urinary symptoms. He was given IV Ancef at the urgent care prior to coming here. Arthrocentesis results discussed with Dr. Suarez from orthopedics who wishes for the patient to be discharged on Keflex and she'll follow Mummony in the office today. - Diagnoses Provider Diagnoses: Hemarthrosis, Cellulitis - Physician Notifications Discussed Care Of Patient With: Laura Suarez Time Discussed With Above Provider: 23:57 Instructed by Provider To: Other - She requests a knee aspiration for fluid analysis and would like to know the results. Discharge - Sign-Out/Discharge Documenting (check all that apply): Patient Departure - Discharge Patient Received Moderate/Deep Sedation with Procedure: No - Discharge Plan Condition: Improved Disposition: HOME Prescriptions: Cephalexin CAP* [Keflex CAP*] 500 mg PO QID #30 cap Patient Education Materials: Cellulitis (ED), Hemarthrosis (ED) Referrals: Laura Suarez MD [Medical Doctor] - Jd Salas MD [Primary Care Provider] - Additional Instructions: Take Tylenol, ibuprofen as needed for fever. Return with shaking chills, high fever, worse, new symptoms or other concerns. Call first thing in the morning to schedule prompt follow-up with Dr. Suarez. - Billing Disposition and Condition Condition: IMPROVED Disposition: Home - Attestation Statements Document Initiated by Scribe: Yes Documenting Scribe: Katelyn Lorenzana Provider For Whom Scribe is Documenting (Include Credential): Omkar Lucero MD Scribe Attestation: IKatelyn, scribed for Omkar Lucero MD on 08/29/18 at 0559. Scribe Documentation Reviewed: Yes Provider Attestation: The documentation as recorded by the octavioibKatelyn avina accurately reflects the service I personally performed and the decisions made by , Omkar Lucero MD Status of Scribe Document: Viewed
[2018-08-28 23:57] LABS: ABS Basophils 0 10^3/ul (0-0.2); ABS Eosinophils 0 10^3/ul (0-0.6); ABS Lymphocytes 0.5 10^3/ul (1.0-4.8); ABS Neutrophils 13.1 10^3/ul (1.5-7.7); ABS Nucleated RBC 0 10^3/ul; Eosinophil % 0.2 %; Hematocrit 33 % (42-52); Hemoglobin 10.9 g/dL (14.0-18.0); Lymphocyte % 3.2 %; Mean Corpuscular HGB Conc 33 g/dL (31-36); Mean Corpuscular Hemoglobin 29 pg (27-31); Mean Corpuscular Volume 90 fL (80-94); Nucleated Red Blood Cells % 0; Platelet Count 234 10^3/uL (150-450); Red Blood Count 3.73 10^6 /uL (4.18-5.48); Red Cell Distribution Width 14 % (10.5-15); White Blood Count 14.6 10^3/uL (3.5-10.8)
[2018-08-29] MEDS ORDERED: Lidocaine 1%* 5 ML VIAL INJ ONE (00:02)
[2018-08-29] MEDS ORDERED: Lidocaine 1% INJ* 10 MG/ML 30 ML SDV ONE (00:03)
[2018-08-29 00:06] LABS: Activated Partial Thrombo Time 32.3 seconds (26.0-36.3); INR 1.15 (0.82-1.09)
[2018-08-29 00:14] LABS: Albumin 4.2 g/dL (3.2-5.2); Albumin/Globulin Ratio 1.6 (1-3); BUN/Creatinine Ratio 15.7 (8-20); C Reactive Protein 15.66 mg/L (<8.01); EGFR African American 108.1 (>60); EGFR Non-African American 89.4 (>60); Globulin 2.6 g/dL (2-4); Potassium 3.7 mmol/L (3.5-5.0); Total Bilirubin 0.5 mg/dL (0.2-1.0); Total Protein 6.8 g/dL (6.4-8.9)
[2018-08-29 00:16] LABS: Troponin I 0.01 ng/mL (<0.04)
[2018-08-29 00:27] LABS: Body Fluid Source Synovial Fluid
[2018-08-29 06:46] VITALS: BP 122/64
== END 2018-08-29 06:45 | disposition home or self-care (01) ==
LOC: ED 23:39
DX: T81.40XA Infection following a procedure, unspecified, initial encounter (principal); T84.54XA Infection and inflammatory reaction due to internal left knee prosthesis, initial encounter; M25.062 Hemarthrosis, left knee; L03.116 Cellulitis of left lower limb; I45.10 Unspecified right bundle-branch block; M35.3 Polymyalgia rheumatica; Z87.442 Personal history of urinary calculi; D64.9 Anemia, unspecified; R50.9 Fever, unspecified; N39.0 Urinary tract infection, site not specified; I10 Essential (primary) hypertension; Z96.652 Presence of left artificial knee joint
CPT/HCPCS: 36415; 71045; 80053; 82945; 83605; 84157; 84484; 85025; 85610; 85730; 86140; 87040; 87070; 87205; 87640; 87641; 89051; 93005; 99283

== ENCOUNTER 2018-08-29 21:26 | Inpatient (IN) | payer MEDICARE, OTHER ==
[2018-08-29] MEDS ORDERED: Acetaminophen TAB* 325 MG PO ONE (22:14)
[2018-08-29] MEDS ORDERED: NS 0.9% 1000 ML** 1,000 ML IV ONE (22:14)
--- NOTE | 2018-08-29 22:16 | ED ---
HPI Febrile Illness - HPI Summary HPI Summary: This patient is a 77 year old MF presenting to [facility] with a chief complaint of fever of 103 since 18:00 today. He was here last night and had his left knee drained. He has an appointment with Dr. Suarez at 10:00 tomorrow, but this is being cancelled he was instructed to come to [facility] and be admitted. Patient reports chills (earlier this evening, since resolved). Patient denies coughing and urinary symptoms. He has a PMHx of a kidney infection. - History of Current Complaint Chief Complaint: EDFever Time Seen by Provider: 08/29/18 21:32 Hx Obtained From: Patient Onset/Duration: Started Hours Ago, Still Present Timing: Constant, Lasting Hours Pain Intensity: 0 Pain Scale Used: 0-10 Numeric Associated Signs and Symptoms: Chills - earlier this evening, since resolved, Cough - Denies, Other: - Denies urinary symptoms - Additional Pertinent History Primary Care Physician: [id number] - Allergy/Home Medications Allergies/Adverse Reactions: Allergies Allergy/AdvReac Type Severity Reaction Status Date / Time No Known Allergies Allergy Verified 08/28/18 21:10 PMH/Surg Hx/FS Hx/Imm Hx Endocrine/Hematology History: Reports: Hx Anemia - slow release iron Cardiovascular History: Reports: Hx Hypertension - controlled with meds Denies: Hx Atrial Fibrillation History: Reports: Hx Kidney Infection - 2014, Hx Kidney Stones - hx of 1995 or 1997 approx Musculoskeletal History: Reports: Hx Arthritis - knee, poly-myalgia rhuematica, Other Musculoskeletal History - polydromic pseudo gout Sensory History: Reports: Hx Contacts or Glasses Denies: Hx Hearing Aid Opthamlomology History: Reports: Hx Contacts or Glasses - Cancer History Hx Chemotherapy: No - Surgical History Surgery Procedure, Year, and Place: left knee arthroplasty 1957. right achiles tendon repair x2- 1958,1959. stent for kidney stone 1994. left knee skin graft approx. left knee replacement June 2018 Hx Anesthesia Reactions: No Infectious Disease History: No Infectious Disease History: Denies: Hx Clostridium Difficile, Hx Hepatitis, Hx Human Immunodeficiency Virus (HIV), Hx of Known/Suspected MRSA, Hx Shingles, Hx Tuberculosis, Hx Known/ Suspected VRE, Hx Known/Suspected VRSA, History Other Infectious Disease, Traveled Outside the [place] in Last 30 Days - Family History Known Family History: Positive: Hypertension - Social History Alcohol Use: None Hx Substance Use: No Substance Use Type: Reports: None Hx Tobacco Use: No Smoking Status (MU): Never Smoked Tobacco Have You Smoked in the Last Year: No Review of Systems Positive: Fever - up to 103, Chills - earlier this evening, since resolved Negative: Cough Negative: other - Urinary symptoms All Other Systems Reviewed And Are Negative: Yes Physical Exam - Summary Physical Exam Summary: Appearance: well appearing, no pain distress Skin: warm, dry, reflects adequate perfusion, surgical scar on his left knee Head/face: normal Eyes: EOMI, JASWANT ENT: mucous membranes moist Neck: supple, non-tender Respiratory: CTA, breath sounds present Cardiovascular: Tachycardia, regular rhythm, pulses symmetrical Abdomen: non-tender, soft Bowel Sounds: present Musculoskeletal: normal, strength/ROM intact. Knee is warm, tender, and a little swollen Neuro: normal, sensory motor intact, A&Ox3 Triage Information Reviewed: Yes Vital Signs On Initial Exam: Initial Vitals Temp Pulse Resp BP Pulse Ox 100 F 93 20 106/55 97 08/29/18 21:59 08/29/18 21:59 08/29/18 21:59 08/29/18 21:59 08/29/18 21:59 Vital Signs Reviewed: Yes Diagnostics - Vital Signs Vital Signs Temp Pulse Resp BP Pulse Ox 08/29/18 21:59 100 F 93 20 106/55 97 - Laboratory Result Diagrams: 08/29/18 22:47 08/29/18 22:47 Lab Statement: Any lab studies that have been ordered have been reviewed, and results considered in the medical decision making process. Course/Dx - Course Course Of Treatment: Patient was seen by us last night and had a joint aspiration. The orthopedist wish to have him discharged on oral antibiotics. They're unable to follow him up in the office today and had him return to the ER given that he had persistent fever. The patient's knee is still red, hot and warm with tenderness. His WBC is elevated. The hospitalist team was contacted by orthopedist and will admit. WBC on joint aspirate yesterday was around 3700. - Febrile Illness Differential Diagnoses: Other: - Joint space infection, hemarthrosis, sepsis/ severe sepsis, UTI - Diagnoses Provider Diagnoses: Sepsis, Postoperative pain of left knee, Effusion, left knee Discharge - Sign-Out/Discharge Documenting (check all that apply): Patient Departure - Admit Patient Received Moderate/Deep Sedation with Procedure: No - Discharge Plan Condition: Stable Disposition: ADMITTED TO [facility] - Billing Disposition and Condition Condition: STABLE Disposition: Admitted to [facility] - Attestation Statements Document Initiated by Scribe: Yes Documenting Scribe: Roney Agustin Provider For Whom Scribe is Documenting (Include Credential): Omkar Lucero MD Scribe Attestation: Roney Ponce, scribed for Omkar Lucero MD on 08/30/18 at 0431. Scribe Documentation Reviewed: Yes Provider Attestation: The documentation as recorded by the Roney karimi accurately reflects the service I personally performed and the decisions made by Omkar hopper MD Status of Scribe Document: Viewed
[2018-08-29 22:54] LABS: ABS Lymphocytes 0.6 10^3/ul (1.0-4.8); ABS Monocytes 1.3 10^3/ul (0-0.8); ABS Neutrophils 15.1 10^3/ul (1.5-7.7); Hematocrit 32 % (42-52); Hemoglobin 10.3 g/dL (14.0-18.0); Lymphocyte % 3.7 %; Mean Corpuscular HGB Conc 33 g/dL (31-36); Mean Corpuscular Hemoglobin 29 pg (27-31); Mean Corpuscular Volume 89 fL (80-94); Mean Platelet Volume 7.4 fL (7.4-10.4); Platelet Count 211 10^3/uL (150-450); Red Blood Count 3.55 10^6 /uL (4.18-5.48); Red Cell Distribution Width 15 % (10.5-15); White Blood Count 17.1 10^3/uL (3.5-10.8)
[2018-08-29] MEDS ORDERED: Ondansetron INJ* 2 MG/ML VIAL IV PRN (22:57)
[2018-08-29] MEDS ORDERED: Vancomycin(*) 1,250 MG in NS 0.9% 250 ML* 250 ML IVPB ONE (22:57)
[2018-08-29 23:00] LABS: INR 1.35 (0.82-1.09)
[2018-08-29] MEDS ORDERED: Vancomycin(*) 0 MG in NS 0.9% 250 ML* 250 ML IVPB SCH (23:00)
[2018-08-29 23:09] LABS: BUN/Creatinine Ratio 19.1 (8-20); EGFR African American 99.8 (>60); EGFR Non-African American 82.5 (>60); Potassium 3.6 mmol/L (3.5-5.0)
[2018-08-29] MEDS ORDERED: Lactated Ringers 1000 ML Bag* 1,000 ML IV ONE (23:45)
[2018-08-29] MEDS ORDERED: Heparin VIAL(*) 5000 UNITS/ML VIAL (FIVE THOUSAND) SUBCUT SCH (23:45)
[2018-08-30 00:52] LABS: Erythrocyte Sed Rate 52 mm/Hr (0-19)
[2018-08-30] MEDS ORDERED: Vancomycin per Pharmacy* NOTE FOLLOW UP PRN (01:34)
--- NOTE | 2018-08-30 02:53 | HP ---
CC: Dr. Salas; Dr. Laura Suarez * HISTORY AND PHYSICAL: DATE OF ADMISSION: 08/29/18 PRIMARY CARE PROVIDER: Dr. Salas. OUTPATIENT ORTHOPEDIST: Dr. Laura Suarez. ATTENDING PHYSICIAN WHILE IN THE HOSPITAL: Dr. Chris Fischer.* (DICTATED BY PATTY RAZO) CHIEF COMPLAINT: Fevers and chills up x2 days, left knee swelling. HISTORY OF PRESENT ILLNESS: Mr. Carcamo is a 77-year-old male with past medical history significant for hypertension, BPH, history of pseudogout, and recent left total knee replacement, who initially felt in his normal state of health until the evening of 08/28/18. The patient then developed chills and a fever up to 100.3 with some redness in his left knee without any pain. The patient called his orthopedist's office who referred him to urgent care. At urgent care, the patient had labs which showed a significantly elevated white blood cell count. The patient was found to be febrile. The patient was given Ancef IV and referred onto the emergency department. The patient in the emergency department had blood cultures drawn and had an arthrocentesis. The patient at that time had an elevated temperature, but was hemodynamically stable. The patient was sent home from the emergency department on [facility] to follow up closely with his primary care provider. The patient had knee imaging which was unremarkable except for soft tissue swelling. The patient today was feeling his normal state of health. The patient got a call from his orthopedist to check in and he stated he felt well at that time. The patient was scheduled to follow up on early Sunday morning; however, the patient on the evening of 08/29/18 again felt fevers and chills. The patient denies chest pain , shortness of breath, dizziness on standing, nausea, vomiting. The patient urinates frequently which is unchanged. The patient has no pain with urination , no blood in his urine. The patient has a history of pyelonephritis and kidney stones. The patient was referred back to the emergency department by the orthopedic office. The patient in the emergency department again had an elevated temperature, elevated white blood cell count. The patient's synovial fluid culture from 08/29/18 early in the morning had not been resulted yet. The patient's blood cultures and urine cultures also are not back. The patient has a history of pseudogout but does not feel like his pseudogout and the patient has no pain in his knee. The patient takes Tylenol twice daily 1000 mg scheduled for his pain and has a fever despite this. The patient has a history of PMR but is not able to say whether he was previously on steroids for this. Due to concern for septic arthritis, we were asked to evaluate the patient for admission to hospital. PAST MEDICAL HISTORY: 1. Hypertension. 2. History of iron-deficiency anemia. 3. Benign prostatic hyperplasia. 4. History of nephrolithiasis. 5. History of renal infection. 6. Osteoarthritis. 7. Pseudogout. 8. History of polymyalgia rheumatica. PAST SURGICAL HISTORY: 1. Left total knee arthroplasty. 2. Left knee arthroscopy x2 3. Achilles tendon repair. 4. Nasal surgery. MEDICATIONS: 1. Valsartan/hydrochlorothiazide 160/25 two tabs in the morning. 2. Amlodipine 10 mg p.o. daily. 3. Iron slow release 143 mg p.o. b.i.d. 4. Docusate 100 mg p.o. b.i.d. 5. Keflex 500 mg p.o. 4 times a day. The patient has taken 3 of these so far. 6. Tylenol 1000 mg p.o. b.i.d. ALLERGIES: No known drug allergies. FAMILY HISTORY: The patient's brother had melanoma and the patient's father had colon cancer. The patient's mother of complications of hypertension. SOCIAL HISTORY: The patient never smoked. Drinks only occasionally. Denies illicit drug use. The patient is retired from the [employer]. The patient is and has 1 child. The patient's surrogate decision maker is his , Alexa Carcamo. REVIEW OF SYSTEMS: A 14-point review of systems was reviewed and is negative except as noted above in the HPI. PHYSICAL EXAMINATION GENERAL: The patient is a 77-year-old male, who appears stated age and sitting comfortably in bed, in no acute distress. VITAL SIGNS: At the time of evaluation, temperature 100, pulse rate 105, respiratory rate 20, oxygen saturation 95% on room air, blood pressure 95/74. HEENT: Head: Normocephalic, atraumatic. Sclerae anicteric. No conjunctival injection. Nasal mucosa moist. Oral mucosa moist. No pharyngeal erythema, discharge, or exudate. NECK: Supple, nontender. No lymphadenopathy. No carotid bruit auscultated. No JVD. RESPIRATORY: Clear to auscultation bilaterally. No wheezes, rales, or rhonchi. Good air exchange bilaterally. CARDIAC: Regular rate and rhythm. No clicks, murmurs, gallops, or rubs. Pulses 2+ in the bilateral dorsalis pedis, posterior tibial, and radial areas. ABDOMEN: Soft, nontender, nondistended. Bowel sounds present, normoactive in all 4 quadrants. No hepatosplenomegaly. No abdominal bruits auscultated. No hepatojugular reflux. GENITOURINARY: No suprapubic or CVA tenderness. SKIN: Healing incision on the left knee, erythema in the lower portion of the left knee. EXTREMITIES: 1+ pitting edema in the left lower extremity. NEUROLOGIC: Cranial nerves II through XII intact. No focal deficits. Alert and oriented x3. PSYCHIATRIC: Pleasant and cooperative. DIAGNOSTIC STUDIES/LABORATORY DATA: White blood cell count 7.1, hemoglobin 10.3, platelet count 211, INR 1.35. Sodium 136, potassium 3.6, chloride 101, carbon dioxide 29, anion gap 6, BUN 17, creatinine 0.89. Glucose 141, lactic acid 0.9, calcium 9.0. Previous urine shows 2+ leukocyte esterase, 2+ protein, 1+ blood. Synovial fluid showed red bloody fluid, white blood cell count 3710, 4 % neutrophils. CRP previously 15, white blood cell count previously 14.6. Studies: None. Previous knee x-ray showed soft tissue swelling, no other abnormalities. Chest x-ray read as no acute cardiopulmonary disease. ASSESSMENT AND PLAN/IMPRESSION: Mr. Carcamo is a 77-year-old male with past medical history significant for hypertension, iron-deficiency anemia, benign prostatic hyperplasia, osteoarthritis, and recent left total knee replacement, who presents to the emergency department after 2 days of high fevers, chills, and left knee swelling with concern for septic arthritis. The patient will be admitted to the hospital for antibiotics, orthopedic consultation, and supportive care. 1. Possible fever, possible septic arthritis. The patient has had significant fevers and escalating white blood cell count. The patient is now tachycardic and has a borderline low blood pressure. The patient will be bolused with fluids. The patient will be started on broad-spectrum antibiotics of Zosyn and cefepime. The patient has no organisms in his knee Gram stain and white blood cell count not typically indicative of septic arthritis. The patient will be seen in consultation by Dr. Suarez of Orthopedics for consideration of a washout of the patient's knee as well as possibility of repeat arthrocentesis or other intervention. Other cause of the patient's fevers could be respiratory infection which is less likely due to the patient's negative chest x-ray. The patient had 2+ leukocyte esterase on his urinalysis. The patient's urine pathogens will be covered by the patient's antibiotics. The patient will have an ultrasound of the kidneys and bladder due to previous history of nephrolithiasis and mild hematuria. The patient had blood cultures from yesterday which are pending. 2. Hypertension. The patient is borderline hypotensive. Hold the patient's blood pressure medications and supplemental fluids. 3. Benign prostatic hyperplasia. The patient will have a renal ultrasound of the bladder. The patient has no symptoms of retention at this time, just urinary frequency without continence. 4. History of pseudogout. There are no crystals on the patient's synovial fluid analysis, but has remained in the differential for the patient's symptoms. 5. Polymyalgia rheumatica. The patient has no symptoms of widespread inflammatory arthritis. We will add on ESR. 6. DVT prophylaxis: Given the possibility of the patient having a knee washout , the patient will be given 1 dose of heparin and then have SCDs only. The patient is at high risk. 7. FEN. The patient will be n.p.o. after midnight. The patient will have fluids as above. TIME SPENT: Approximately 60 minutes was spent on admission of this patient, 30 minutes of which was spent [id number] with the patient obtaining history and physical and discussing treatment plan. This plan was discussed with my attending Dr. Chris fischer, and he is in agreement. PATTY RAZO [id number]/[facility] #: [id number] BARNEY
[2018-08-30] MEDS: Cefepime 1 GM in Dextrose(*) 1 GM/50 ML BAG IV SCH ×3 (03:15→23:44)
[2018-08-30] MEDS: Lactated Ringers 1000 ML Bag* 1,000 ML IV SCH ×2 (04:11→17:24)
[2018-08-30 06:31] LABS: ABS Lymphocytes 0.6 10^3/ul (1.0-4.8); ABS Monocytes 1.3 10^3/ul (0-0.8); ABS Neutrophils 13.4 10^3/ul (1.5-7.7); Eosinophil % 0.1 %; Hematocrit 29 % (42-52); Hemoglobin 9.6 g/dL (14.0-18.0); Lymphocyte % 4.1 %; Mean Corpuscular HGB Conc 33 g/dL (31-36); Mean Corpuscular Hemoglobin 29 pg (27-31); Mean Corpuscular Volume 88 fL (80-94); Mean Platelet Volume 7.8 fL (7.4-10.4); Platelet Count 188 10^3/uL (150-450); Red Blood Count 3.26 10^6 /uL (4.18-5.48); Red Cell Distribution Width 15 % (10.5-15); White Blood Count 15.3 10^3/uL (3.5-10.8)
[2018-08-30 06:58] LABS: BUN/Creatinine Ratio 18.4 (8-20); Calcium 8.4 mg/dL (8.6-10.3); EGFR African American 119.7 (>60); EGFR Non-African American 98.9 (>60); Magnesium 1.9 mg/dL (1.9-2.7); Potassium 3.5 mmol/L (3.5-5.0)
[2018-08-30] MEDS: Vancomycin(*) 1,250 MG in NS 0.9% 250 ML* 250 ML IVPB SCH (12:31)
[2018-08-30 14:32] LABS: Urine Appearance Cloudy; Urine Bacteria Absent (Absent); Urine Bilirubin Negative (Negative); Urine Blood 1+ (Negative); Urine Color Yellow; Urine Glucose Negative (Negative); Urine Ketones Negative (Negative); Urine Nitrite Negative (Negative); Urine Protein Negative (Negative); Urine Red Blood Cell Trace(0-2/hpf) (Absent); Urine Specific Gravity 1.016 (1.010-1.030); Urine Urobilinogen Negative (Negative); Urine White Blood Cell 3+(>20/hpf) (Absent)
--- NOTE | 2018-08-30 16:52 | PN ---
Subjective Date of Service: 08/30/18 Interval History: Mr. Cacramo feels good this morning. He has no pain, no dysuria, no cough, no headache, no sore throat, no congestion, no toothache, no nausea, no enlarged lymph nodes, no rashes, no sores or ulcers, no diarrhea, and no knee pain. No other joints hurt either. He has not traveled recently and has not started any new medications besides the keflex in urgent care. Objective Active Medications: Acetaminophen (Tylenol Tab*) 650 mg PO Q6H PRN PRN Reason: FEVER/PAIN Cefepime HCl (Maxipime 1 Gm In Dextrose Duplex (*)) 1 gm in 50 mls @ 100 mls/ hr IV Q12H [facility] Last Admin: 08/30/18 11:47 Dose: 100 mls/hr Lactated Ringer's (Lactated Ringers 1000 Ml Bag*) 1,000 mls @ 100 mls/hr IV PER RATE [facility] Last Admin: 08/30/18 04:11 Dose: 100 mls/hr Vancomycin HCl 1,250 mg/ (Sodium Chloride) 250 mls @ 166.667 mls/hr IVPB Q12H [facility] Last Admin: 08/30/18 12:31 Dose: 166.667 mls/hr Ondansetron HCl (Zofran Inj*) 4 mg IV Q6H PRN PRN Reason: NAUSEA Pharmacy Consult (Vancomycin Per Pharmacy*) 1 note FOLLOW UP . PRN PRN Reason: PER PROTOCOL Pharmacy Profile Note (Vancomycin Trough Check) 1 note FOLLOW UP 1230 ONE Stop: 08/31/18 12:31 Vital Signs - 8 hr 08/30/18 08/30/18 08/30/18 11:09 15:17 15:18 Temperature 98.7 F 98.3 F Pulse Rate 70 78 Respiratory 20 18 Rate Blood Pressure 127/59 122/65 (mmHg) O2 Sat by Pulse 95 98 Oximetry Oxygen Devices in Use Now: None Appearance: alert, well appearing. Eyes: No Scleral Icterus Ears/Nose/Mouth/Throat: NL Teeth, Lips, Gums, - - good dentition. no pharyngeal exudates or erythema Neck: NL Appearance and Movements; NL JVP, - - no lymphadenopathy Respiratory: Symmetrical Chest Expansion and Respiratory Effort, Clear to Auscultation Cardiovascular: RRR, - - no murmurs Abdominal: NL Sounds; No Tenderness; No Distention, No Hepatosplenomegaly, - - no CVA tenderness Lymphatic: No Cervical Adenopathy Extremities: - - left knee incision is clean and without erythema. it is warmer than the right. he has good range of motion, sensation, and strength. Skin: No Rash or Ulcers, - - feet are clean, no ulcers Neurological: Alert and Oriented x 3 Result Diagrams: 08/30/18 06:10 08/30/18 06:10 Assess/Plan/Problems-Billing Assessment: This is a 77 year old man with history of a left TKA 5 weeks ago who has had an uncomplicated postop course who presented to the ED with fevers/chills that started two days ago. - Patient Problems (1) SIRS (systemic inflammatory response syndrome) Current Visit: Yes Status: Acute Code(s): R65.10 - SIRS OF NON-INFECTIOUS ORIGIN W/O ACUTE ORGAN DYSFUNCTION SNOMED Code(s): 950934581 Comment: with unclear source knee was tapped two days ago and is growing no organisms a thorough review of systems is entirely negative I see no source of infection on my exam besides possibly the left knee, though it is hard to imagine a septic knee with no pain and such good range of motion a UA is not entirely normal--will await the culture and continue broad spectrum antibiotics blood cultures are negative (2) DVT prophylaxis Current Visit: No Status: Acute Code(s): IMV8711 - SNOMED Code(s): 425150953 Comment: heparin (3) HTN (hypertension) Current Visit: No Status: Acute Code(s): I10 - ESSENTIAL (PRIMARY) HYPERTENSION SNOMED Code(s): 57273889 Comment: antihypertensives are on hold due to sirs (4) Status post total left knee replacement Current Visit: No Status: Acute Code(s): Z96.652 - PRESENCE OF LEFT ARTIFICIAL KNEE JOINT SNOMED Code(s): 9028462997646
[2018-08-30 17:53] LABS: ABS Lymphocytes 0.6 10^3/ul (1.0-4.8); ABS Monocytes 0.8 10^3/ul (0-0.8); Eosinophil % 0.1 %; Hematocrit 29 % (42-52); Hemoglobin 9.5 g/dL (14.0-18.0); Lymphocyte % 5.1 %; Mean Corpuscular HGB Conc 33 g/dL (31-36); Mean Corpuscular Hemoglobin 30 pg (27-31); Mean Corpuscular Volume 89 fL (80-94); Mean Platelet Volume 7.9 fL (7.4-10.4); Platelet Count 183 10^3/uL (150-450); Red Blood Count 3.22 10^6 /uL (4.18-5.48); Red Cell Distribution Width 15 % (10.5-15); White Blood Count 12.5 10^3/uL (3.5-10.8)
[2018-08-30 18:06] LABS: Activated Partial Thrombo Time 30.8 seconds (26.0-36.3); INR 1.33 (0.82-1.09)
[2018-08-30 18:08] LABS: EGFR African American 106.7 (>60); EGFR Non-African American 88.1 (>60)
[2018-08-30] MEDS: Heparin VIAL(*) 5000 UNITS/ML VIAL (FIVE THOUSAND) SUBCUT SCH (20:12)
[2018-08-30] MEDS: Acetaminophen TAB* 325 MG PO PRN (20:16)
[2018-08-31] MEDS: Vancomycin(*) 1,250 MG in NS 0.9% 250 ML* 250 ML IVPB SCH ×2 (00:29→14:07)
[2018-08-31] MEDS: Heparin VIAL(*) 5000 UNITS/ML VIAL (FIVE THOUSAND) SUBCUT SCH ×3 (05:00→21:38)
[2018-08-31 07:28] LABS: ABS Lymphocytes 0.3 10^3/ul (1.0-4.8); ABS Monocytes 0.6 10^3/ul (0-0.8); ABS Neutrophils 7.2 10^3/ul (1.5-7.7); Eosinophil % 0.2 %; Hematocrit 30 % (42-52); Hemoglobin 10.1 g/dL (14.0-18.0); Lymphocyte % 3.9 %; Mean Corpuscular HGB Conc 33 g/dL (31-36); Mean Corpuscular Hemoglobin 30 pg (27-31); Mean Corpuscular Volume 88 fL (80-94); Platelet Count 171 10^3/uL (150-450); Red Blood Count 3.42 10^6 /uL (4.18-5.48); Red Cell Distribution Width 15 % (10.5-15); White Blood Count 8.1 10^3/uL (3.5-10.8)
[2018-08-31] MEDS ORDERED: Phenylephrine 10 MG/ML VIAL* 1 ML VIAL ONE (07:34)
[2018-08-31] MEDS ORDERED: KETAMINE HCL* 50 MG/ML 10 ML VIAL ONE (07:34)
[2018-08-31] MEDS ORDERED: Midazolam* 1 MG/ML 5 ML VIAL (5 MG) ONE (07:34)
[2018-08-31] MEDS ORDERED: Ondansetron INJ* 2 MG/ML VIAL ONE (07:34)
[2018-08-31] MEDS ORDERED: fentaNYL* 50 MCG/ML 5 ML VIAL (250 MCG VIAL) ONE (07:34)
[2018-08-31] MEDS ORDERED: Lidocaine 2% MPF* 2 ML VIAL ONE (07:34)
[2018-08-31] MEDS ORDERED: Propofol* 10 MG/ML 20 ML BTL ONE (07:34)
[2018-08-31] MEDS ORDERED: Bupivacaine 0.5%* 50 ML VIAL ONE (07:58)
[2018-08-31] MEDS ORDERED: Bacitracin INJECTION* 50,000 UNITS ONE ×2 (07:59→09:17)
[2018-08-31] MEDS ORDERED: DiMENhydriNATE IV* 50 MG/ML VIAL ONE (09:04)
--- NOTE | 2018-08-31 09:25 | CONS ---
ORTHOPEDIC CONSULT NOTE: DATE OF CONSULT: 08/30/18 Thank you for this orthopedic consultation. CHIEF COMPLAINT: Fevers and chills, left knee swelling. HISTORY OF PRESENT ILLNESS: Mr. Carcamo is a 77-year-old gentleman who had on 07/24/18 uncomplicated left total knee arthroplasty with me; Laura Suarez MD, for severe arthritis. He went on to have a normal postoperative course. I recently saw the patient in clinic and he was doing well. Unfortunately, on 05/18, the patient developed fevers and chills. His reported documented fever was up to 103. He was seen in the emergency room and he was aspirated. It was reportedly bloody clear fluid and this was sent for cultures and sensitivities. The patient was sent home. The patient presented again on 08/29/18 with fevers of over 102 and chills. He was admitted for further evaluation. He reports significant swelling and warmth in the left knee, but no increase in his pain. He has had no drainage or problems with the wound healing. The medicine team admitted the patient and has checked him for multiple other sources of infection. None can be found. He certainly had leukocytosis with elevated CRP and ESR. The aspiration of the left knee joint has not yielded any bacterial growth; however, his white cell count was 3700. The patient, hospitalist team, and I discussed different options. The most likely source of an infection is the patient's left knee. In order to be aggressive and safe against an infected total joint, we will take him to the operating room for open irrigation, debridement, and polyethylene exchange. I will plan to obtain new cultures. The patient understands I have had no bacterial growth up to this point, but the knee is the most likely source of infection. He wishes to proceed with the surgery. PAST MEDICAL HISTORY: Hypertension, iron deficiency anemia, BPH, nephrolithiasis, renal infection, osteoarthritis, pseudogout, polymyalgia rheumatica. PAST SURGICAL HISTORY: Left total knee arthroplasty, left knee arthroscopy x2, Achilles tendon repair, nasal surgery. HOME MEDICATIONS: 1. Valsartan/hydrochlorothiazide 160/25 two tabs in the morning. 2. Amlodipine 10 mg p.o. daily. 3. Iron 143 mg p.o. b.i.d. 4. Docusate 100 mg p.o. b.i.d. 5. Keflex 500 mg 4 times a day. 6. Tylenol 1000 mg p.o. b.i.d. ALLERGIES: No known drug allergies. FAMILY HISTORY: Paternal colon cancer. Maternal hypertension. SOCIAL HISTORY: The patient lives in [facility] with his . He is retired from the [employer]. He has a child. His surrogate decision maker is his , Alexa Carcamo. Minimal alcohol. No recreational drug use or tobacco use. REVIEW OF SYSTEMS: Fourteen systems reviewed. As above, positive for the left knee warmth and swelling, positive for fevers and chills. Negative for cough, sore throat. Negative for urinary urgency or burning. Negative for nausea, vomiting. Negative for headache, dizziness. Negative for chest pain, shortness of breath. Otherwise, the patient reports review of systems is negative or not relevant. PHYSICAL EXAM: Vitals: Temperature 98.8 with a recent temperature as high as 101, pulse 70, blood pressure 127/59. General: The patient is a well- nourished male, in no apparent distress. Alert and oriented x3. Pleasant mood and appropriate affect. Gait is with a slight antalgic limp. Heart: S1 and S2. Chest: Unlabored breathing. Breath sounds in all lung plaza. Abdomen: Soft, nontender, nondistended. Left Lower Extremity: The patient's skin is intact. His incision is healing well. No erythema. Significant warmth at the knee with a moderate effusion. He can move the knee from 10 to 100 degrees of flexion. Distally, neurovascularly intact. The calf is soft and compressible. RADIOGRAPHS: Multiple plain films of the knee taken recently on 08/29/18 show no obvious abnormalities, cemented total knee arthroplasty in satisfactory position. Recent chest x-ray from 08/28/18 shows no obvious acute disease. Recent abdomen and bladder ultrasound shows some nephrolithiasis without hydronephrosis and a small renal cyst as well as an enlarged prostate. LABORATORY DATA: The patient's labs on 08/29/18 were 17.1 white blood cells; this has come down to 15, 12, and today 8.1. Hematocrit is at 30, there is a left shift. ESR is elevated at 52. CRP elevated at 15.6. BUN and creatinine 14 and 0.7. Recent UA positive for some leukocyte esterase, white blood cells, no bacteria. Recent blood cultures show no growth. Recent knee joint aspiration shows no growth. ASSESSMENT AND PLAN: Mr. Carcamo is a 77-year-old gentleman who is now 6 weeks after 07/24/18 left total knee arthroplasty. The patient presents now with 72 hours of fevers, chills, and significant leukocytosis. His laboratory values indicate infection including leukocytosis with a left shift, elevated ESR , and CRP. No other identified source of possible infection is determined, except for the left knee. Although the left knee is moving with minimal pain, he does have significant swelling and warmth at the knee. The patient's aspiration did yield 3700 white blood cells, which is above the normal limit for a replaced total joint. The patient and I discussed openly his different laboratory values indicate possible infection of the left knee. We do not have bacterial growth from the aspiration definitively diagnosing infection. In order to avoid further complication of chronic infection in the joint, we decided together today to perform irrigation and debridement of the left total knee arthroplasty with polyethylene exchange. He has been on vancomycin, although we will obtain further cultures today. He will be placed on long-term antibiotics after this washout as a prophylactic measure. He will have an infectious disease consult. The patient understands my treatment plan and the reasoning behind it. He agrees and wishes to move forward. He has been n.p.o. He has been off of his blood thinner and has had heparin. Plan is to take him in the a.m. of 08/31/18 for an open washout of the left knee with polyethylene exchange. [id number]/[facility] #: [id number] BARNEY
[2018-08-31] MEDS ORDERED: fentaNYL* 50 MCG/ML 2 ML VIAL (100 MCG VIAL) IV PRN (09:42)
[2018-08-31] MEDS ORDERED: Naloxone* 0.4 MG/ML 1 ML VIAL IV PRN (09:42)
[2018-08-31] MEDS ORDERED: Ondansetron INJ* 2 MG/ML VIAL IV PRN (09:42)
[2018-08-31] MEDS ORDERED: HYDROmorphone INJ1* 1 MG/ML SYRINGE ONE (10:05)
[2018-08-31] MEDS ORDERED: Vancomycin Trough Check NOTE FOLLOW UP ONE (12:30)
[2018-08-31] MEDS ORDERED: Lactated Ringers 1000 ML Bag* 1,000 ML IV SCH (12:52)
[2018-08-31] MEDS: Acetaminophen TAB* 325 MG PO PRN (13:00)
[2018-08-31] MEDS: Cefepime 1 GM in Dextrose(*) 1 GM/50 ML BAG IV SCH (13:19)
--- NOTE | 2018-08-31 16:06 | PN ---
Subjective Date of Service: 08/31/18 Interval History: Pt feels well. Is s/p post op left knee wash out, pain is controlled Objective Active Medications: Acetaminophen (Tylenol Tab*) 650 mg PO Q6H PRN PRN Reason: FEVER/PAIN Last Admin: 08/31/18 13:00 Dose: 650 mg Apixaban (Eliquis*) 2.5 mg PO BID [facility] Heparin Sodium (Porcine) (Heparin Vial(*)) 5,000 units SUBCUT Q8HR [facility] Stop: 08/31/18 23:59 Last Admin: 08/31/18 14:08 Dose: 5,000 units Cefepime HCl (Maxipime 1 Gm In Dextrose Duplex (*)) 1 gm in 50 mls @ 100 mls/ hr IV Q12H [facility] Stop: 09/01/18 00:29 Last Admin: 08/31/18 13:19 Dose: 100 mls/hr Lactated Ringer's (Lactated Ringers 1000 Ml Bag*) 1,000 mls @ 100 mls/hr IV PER RATE [facility] Last Admin: 08/30/18 17:24 Dose: 100 mls/hr Vancomycin HCl 1,250 mg/ (Sodium Chloride) 250 mls @ 166.667 mls/hr IVPB Q12H [facility] Last Admin: 08/31/18 14:07 Dose: 166.667 mls/hr Cefepime HCl 1 gm/ Sodium (Chloride) 50 mls @ 100 mls/hr IVPB Q12H [facility] Ondansetron HCl (Zofran Inj*) 4 mg IV Q6H PRN PRN Reason: NAUSEA Pharmacy Consult (Vancomycin Per Pharmacy*) 1 note FOLLOW UP . PRN PRN Reason: PER PROTOCOL Pharmacy Profile Note (Vancomycin Trough Check) 1 note FOLLOW UP 1230 ONE Stop: 09/02/18 12:31 Vital Signs - 8 hr 08/31/18 08/31/18 08/31/18 10:39 10:50 10:54 Temperature 97.3 F Pulse Rate 67 63 62 Respiratory 16 8 10 Rate Blood Pressure 112/73 135/76 (mmHg) O2 Sat by Pulse 94 94 95 Oximetry 08/31/18 08/31/18 08/31/18 10:55 11:00 11:05 Temperature Pulse Rate 62 61 64 Respiratory 13 9 0 Rate Blood Pressure 137/75 130/68 132/71 (mmHg) O2 Sat by Pulse 96 96 97 Oximetry 08/31/18 08/31/18 08/31/18 11:15 11:16 11:45 Temperature Pulse Rate 79 74 Respiratory 16 15 19 Rate Blood Pressure 153/75 133/94 (mmHg) O2 Sat by Pulse 95 94 Oximetry 08/31/18 08/31/18 08/31/18 11:46 12:00 13:26 Temperature Pulse Rate 75 74 Respiratory 16 20 16 Rate Blood Pressure 133/94 (mmHg) O2 Sat by Pulse 95 95 Oximetry 08/31/18 13:27 Temperature 98.1 F Pulse Rate 77 Respiratory 16 Rate Blood Pressure 144/73 (mmHg) O2 Sat by Pulse 98 Oximetry Oxygen Devices in Use Now: Nasal Cannula Appearance: 77 yo M in NAD, aAOx3 Eyes: No Scleral Icterus, PERRLA Ears/Nose/Mouth/Throat: NL Teeth, Lips, Gums, Mucous Membranes Moist Neck: NL Appearance and Movements; NL JVP, Trachea Midline Respiratory: Symmetrical Chest Expansion and Respiratory Effort, Clear to Auscultation Cardiovascular: NL Sounds; No Murmurs; No JVD, RRR Abdominal: No Hepatosplenomegaly Lymphatic: No Cervical Adenopathy Extremities: No Clubbing, Cyanosis, - - left knee in post op dressings-not removed Skin: No Rash or Ulcers, No Nodules or Sclerosis Neurological: Alert and Oriented x 3, NL Muscle Strength and Tone Result Diagrams: 08/31/18 07:07 08/30/18 17:36 Microbiology and Other Data: Microbiology 08/31/18 10:25 Gram Stain - Final Body Fluid - Knee Left 08/31/18 10:25 Gram Stain - Final Knee Left 08/29/18 22:38 Aerobic Blood Culture - Preliminary Blood Venous No Growth Day 1 Anaerobic Blood Culture - Preliminary No Growth Day 1 08/29/18 22:47 Aerobic Blood Culture - Preliminary Blood Venous No Growth Day 1 Anaerobic Blood Culture - Preliminary No Growth Day 1 Assess/Plan/Problems-Billing Assessment: This is a 77 year old man with history of a left TKA 5 weeks ago who has had an uncomplicated postop course who presented to the ED with fevers/chills that started two days ago. - Patient Problems (1) SIRS (systemic inflammatory response syndrome) Comment: with unclear source knee was tapped prior to admission and is growing no organisms no other source of source of infection was identified and pt s/p left knee wash out on 08/31/18 continue broad spectrum antibiotics Lyme serology ordered blood cultures are negative (2) HTN (hypertension) Comment: cont home antihypertensives (3) DVT prophylaxis Comment: epixaban Status and Disposition: inpatient
[2018-08-31] MEDS ORDERED: Ibuprofen TAB* 600 MG PO ONE (17:50)
[2018-08-31] MEDS ORDERED: Ibuprofen TAB* 600 MG ONE (17:55)
--- NOTE | 2018-08-31 20:10 | OP ---
DATE OF OPERATION: 08/31/18 - ROOM #342 DATE OF : 36 SURGEON: Laura Suarez MD. PROFESSOR OF CHEMISTRY: PATTY Shabazz. Ms. Arrington did help throughout the procedure with preparation of the leg, wound retraction, manipulation of the knee, and wound closure. ANESTHESIOLOGIST: Dr. Rodgers. ANESTHESIA: General. PRE-OP DIAGNOSIS: Suspected left knee infection. POST-OP DIAGNOSIS: Suspected left knee infection. OPERATIVE PROCEDURE: Open irrigation and debridement of the left knee replacement with polyethylene exchange and multiple cultures obtained. COMPLICATIONS: None. SPECIMENS: 10 cc of joint fluid and multiple culture swabs were sent to Microbiology for cultures and sensitivities to include aerobic, anaerobic, mycobacterium, and fungal cultures. ESTIMATED BLOOD LOSS: 100 cc. TOURNIQUET TIME: 21 minutes. BRIEF HISTORY/INDICATIONS: Mr. Carcamo is a 77-year-old gentleman who had uncomplicated left total knee arthroplasty in the end of June. He is now almost 6 weeks after surgery and was doing well until 3 days ago. He developed fevers above 102 degrees Fahrenheit and chills. He developed increased swelling and warmth at the left knee but minimal increase in pain. He was seen in the emergency room originally where knee aspiration yielded some blood- tinged joint fluid, but no purulence. He then continued to be febrile and was admitted to the hospital on 08/30/18. The patient and I discussed his options. His white blood cell count in the joint fluid was 3700, which was above the threshold for suspected infection. He also had leukocytosis with elevated CRP and ESR. Although cultures were not growing any bacteria, we decided to take him to the operating room for open irrigation and debridement of the knee for suspected left knee infection. No other source of infection could be obtained and the patient continued to be intermittently febrile. Informed consent was obtained from the patient. He understood the risks of surgery included, but were not limited to, bleeding, infection, damage to nearby structures, continued pain, need for further surgery , continued infection, stroke, heart attack, blood clot, and . He wished to proceed. INTRAOPERATIVE FINDINGS: Intraoperatively, there was no obvious purulence. No obvious infection. There was some fibrous tissue around the implants and joint capsule. Implants were intact. DESCRIPTION OF PROCEDURE: Mr. Carcamo was identified in the preanesthesia unit. His left lower extremity was marked as the correct operative side. Informed consent was signed and placed in the chart. The patient was taken to the operating room and placed under general anesthesia. Tourniquet was placed on the left thigh. Left lower extremity was prepped and draped in the usual sterile fashion. Preop timeout was performed to once again correctly identify the patient, side and site. The patient was already on vancomycin and this was continued. Tourniquet was inflated. His prior midline incision was opened. Sharp dissection down to the extensor mechanism was performed. A new 10-blade was used to make a standard medial parapatellar arthrotomy. There was no obvious purulence. 10 cc of joint fluid could be collected and this was blood- tinged joint fluid. Any fibrous scar tissue around the knee joint capsule was carefully debrided using electrocautery and rongeur. Soft tissue was elevated off the superomedial tibia and the knee was flexed up. The prior polyethylene was removed. The knee was copiously irrigated with 9 L of sterile saline. Once again, any fibrous tissue was carefully removed. Meticulous hemostasis was obtained with electrocautery after the tourniquet was turned down at 21 minutes. A 9-mm size 7/A Chanelle II polyethylene articular insert was chosen and locked into position on the tibial tray. Stability of the insert was checked and rechecked and noted to be stable. The extensor mechanism was closed using interrupted #1 Vicryl. The rest of the incision was closed in a layered fashion using 0 and 2-0 Vicryl. Skin was closed using running 3-0 nylon suture. Sterile Xeroform, 4x4s, and Webril were used to cover the incision. Eulalio wrap and cold pack were placed over this. The patient's anesthesia was reversed without difficulty. He was taken to the PACU in stable condition. Intended weightbearing will be weightbearing as tolerated. Intended DVT prophylaxis will be Eliquis. He will have continued IV vancomycin. We will obtain an infectious disease consult. [id number]/[facility] #: [id number] BARNEY
[2018-08-31] MEDS: Docusate CAP* 100 MG PO SCH (21:38)
[2018-09-01] MEDS ORDERED: Cefepime ADVAN(*) 1 GM in NS 0.9% 50 ML* 50 ML IVPB SCH (00:30)
[2018-09-01] MEDS: Vancomycin(*) 1,250 MG in NS 0.9% 250 ML* 250 ML IVPB SCH (01:02)
[2018-09-01 05:33] LABS: ABS Eosinophils 0.1 10^3/ul (0-0.6); ABS Lymphocytes 0.5 10^3/ul (1.0-4.8); ABS Monocytes 1.1 10^3/ul (0-0.8); ABS Neutrophils 6.3 10^3/ul (1.5-7.7); Eosinophil % 0.7 %; Hematocrit 28 % (42-52); Hemoglobin 9.5 g/dL (14.0-18.0); Lymphocyte % 6.3 %; Mean Corpuscular HGB Conc 34 g/dL (31-36); Mean Corpuscular Hemoglobin 30 pg (27-31); Mean Corpuscular Volume 88 fL (80-94); Mean Platelet Volume 7.9 fL (7.4-10.4); Nucleated Red Blood Cells % 0.1; Platelet Count 167 10^3/uL (150-450); Red Blood Count 3.17 10^6 /uL (4.18-5.48); Red Cell Distribution Width 14 % (10.5-15); White Blood Count 8.1 10^3/uL (3.5-10.8)
[2018-09-01 05:43] LABS: BUN/Creatinine Ratio 17.6 (8-20); Calcium 8.3 mg/dL (8.6-10.3); EGFR African American 136.1 (>60); EGFR Non-African American 112.5 (>60); Potassium 3.5 mmol/L (3.5-5.0)
[2018-09-01] MEDS: Valsartan TAB* 160 MG PO SCH (08:36)
[2018-09-01] MEDS: Docusate CAP* 100 MG PO SCH ×2 (08:36→21:09)
[2018-09-01] MEDS: Hydrochlorothiazide TAB* 25 MG PO SCH (08:36)
[2018-09-01] MEDS: Acetaminophen TAB* 325 MG PO PRN ×2 (08:39→21:09)
[2018-09-01] MEDS: Apixaban* 2.5 MG TAB PO SCH ×2 (08:39→21:09)
[2018-09-01] MEDS: amLODIPine TAB* 5 MG PO SCH (08:39)
--- NOTE | 2018-09-01 09:34 | PN ---
Progress Note - Progress Note Date of Service: 09/01/18 SOAP: Subjective: [] Objective: [] Assessment: [] Plan: []
--- NOTE | 2018-09-01 09:42 | PN ---
Progress Note - Progress Note Date of Service: 09/01/18 SOAP: Subjective: POD #1 Left knee I&D with poly exchange. Doing well, minimal pain. Denies CP/SOB , f/c, n/v or calf pain Objective: Vitals: Temp Pulse Resp BP Pulse Ox 97.9 F 98 18 123/71 97 09/01/18 07:21 09/01/18 07:21 09/01/18 08:00 09/01/18 07:21 09/01/18 08:00 Gen: A&O x3, NAD at rest sitting in bed LLE: Dressing C/D/I, +f/e at ankle and MTPs, N/V intact. Calf soft/NT Labs: Laboratory Results - last 24 hr 08/31/18 09/01/18 09/01/18 13:20 05:14 05:14 WBC 8.1 RBC 3.17 L Hgb 9.5 L Hct 28 L MCV 88 MCH 30 MCHC 34 RDW 14 Plt Count 167 MPV 7.9 Neut % (Auto) 78.6 Lymph % (Auto) 6.3 [place] % (Auto) 14.0 Eos % (Auto) 0.7 Baso % (Auto) 0.4 Absolute Neuts (auto) 6.3 Absolute Lymphs (auto) 0.5 L Absolute Monos (auto) 1.1 H Absolute Eos (auto) 0.1 Absolute Basos (auto) 0.0 Absolute Nucleated RBC 0.0 Nucleated RBC % 0.1 Sodium 138 Potassium 3.5 Chloride 105 Carbon Dioxide 26 Anion Gap 7 BUN 12 Creatinine 0.68 Est GFR ( Amer) 136.1 Est GFR (Non-Af Amer) 112.5 BUN/Creatinine Ratio 17.6 Glucose 120 H Calcium 8.3 L Vancomycin Trough 8.1 Microbiology 08/31/18 10:25 Body Fluid - Knee Left Gram Stain - Final 08/31/18 10:25 Body Fluid - Knee Left Body Fluid Culture - Preliminary No Growth Day 1 08/31/18 10:25 Wound - Knee Left Anaerobic Culture - Preliminary No Growth Day 1 08/31/18 10:25 Knee Left Gram Stain - Final 08/31/18 10:25 Knee Left Wound Culture - Preliminary No Growth Day 1 08/30/18 13:00 Urine Urine Culture - Final No Growth (<1,000 CFU/mL) 08/29/18 22:38 Blood Venous Aerobic Blood Culture - Preliminary No Growth Day 2 08/29/18 22:38 Blood Venous Anaerobic Blood Culture - Preliminary No Growth Day 2 08/29/18 22:47 Blood Venous Aerobic Blood Culture - Preliminary No Growth Day 2 08/29/18 22:47 Blood Venous Anaerobic Blood Culture - Preliminary No Growth Day 2 Assessment: POD #1 Left knee I&D with poly exhcange Plan: Cont IV Vancomycin today D/C to [facility] tomorrow on doxycycline x 2 weeks per ID PT/OT, WBAT Eliquis 2.5 mg BID for DVT ppx
--- NOTE | 2018-09-01 13:18 | PN ---
Subjective Date of Service: 09/01/18 Interval History: Pt feels well. Had post op fever at 102, then no recurrence. Pain in left knee minimal Objective Active Medications: Acetaminophen (Tylenol Tab*) 650 mg PO Q6H PRN PRN Reason: FEVER/PAIN Last Admin: 09/01/18 08:39 Dose: 650 mg Amlodipine Besylate (Norvasc Tab*) 5 mg PO [facility] Last Admin: 09/01/18 08:39 Dose: 5 mg Apixaban (Eliquis*) 2.5 mg PO BID [facility] Last Admin: 09/01/18 08:39 Dose: 2.5 mg Docusate Sodium (Colace Cap*) 100 mg PO BID [facility] Last Admin: 09/01/18 08:36 Dose: 100 mg Doxycycline Hyclate (Vibramycin Cap(*)) 100 mg PO BID [facility] Hydrochlorothiazide (Hydrodiuril Tab*) 25 mg PO DAILY [facility] Last Admin: 09/01/18 08:36 Dose: 25 mg Ondansetron HCl (Zofran Inj*) 4 mg IV Q6H PRN PRN Reason: NAUSEA [facility] ([facility]ovan Tab*) [facility] [place] Admin: 09/01/18 08:36 Dose: 320 mg Vital Signs - 8 hr 09/01/18 09/01/18 09/01/18 07:21 08:00 11:15 Temperature 97.9 F 97.9 F Pulse Rate 98 103 Respiratory 17 17 17 Rate Blood Pressure 123/71 118/59 (mmHg) O2 Sat by Pulse 97 97 93 Oximetry Oxygen Devices in Use Now: None Appearance: 77 yo M in NAD, aAOx3 Eyes: No Scleral Icterus, PERRLA Ears/Nose/Mouth/Throat: NL Teeth, Lips, Gums, Mucous Membranes Moist Neck: NL Appearance and Movements; NL JVP, Trachea Midline Respiratory: Symmetrical Chest Expansion and Respiratory Effort, Clear to Auscultation Cardiovascular: NL Sounds; No Murmurs; No JVD, RRR Abdominal: NL Sounds; No Tenderness; No Distention Lymphatic: No Cervical Adenopathy Extremities: No Edema, No Clubbing, Cyanosis, - - left knee in post op dressings -not inspected Skin: No Nodules or Sclerosis Neurological: Alert and Oriented x 3, NL Muscle Strength and Tone Result Diagrams: 09/01/18 05:14 09/01/18 05:14 Microbiology and Other Data: Microbiology 08/31/18 10:25 Gram Stain - Final Body Fluid - Knee Left 08/31/18 10:25 Gram Stain - Final Knee Left 08/29/18 22:38 Aerobic Blood Culture - Preliminary Blood Venous No Growth Day 1 Anaerobic Blood Culture - Preliminary No Growth Day 1 08/29/18 22:47 Aerobic Blood Culture - Preliminary Blood Venous No Growth Day 1 Anaerobic Blood Culture - Preliminary No Growth Day 1 Assess/Plan/Problems-Billing Assessment: This is a 77 year old man with history of a left TKA 5 weeks ago who has had an uncomplicated postop course who presented to the ED with fevers/chills that started two days ago. - Patient Problems (1) SIRS (systemic inflammatory response syndrome) Comment: with unclear source knee was tapped prior to admission and is growing no organisms no other source of source of infection was identified and pt s/p left knee wash out on 08/31/18 Lyme serology ordered blood cultures are negative, fluid cx neg. D/w Dr. Ho who communicated with ID. plan to d/c tomorrow with Doxy x 2 weeks. (2) HTN (hypertension) Comment: cont home antihypertensives (3) DVT prophylaxis Comment: epixaban Status and Disposition: inpatient
[2018-09-01] MEDS: DOXYcycline CAP(*) 100 MG PO SCH (21:09)
[2018-09-02 05:57] LABS: ABS Eosinophils 0.1 10^3/ul (0-0.6); ABS Lymphocytes 0.4 10^3/ul (1.0-4.8); ABS Monocytes 0.9 10^3/ul (0-0.8); ABS Neutrophils 5.9 10^3/ul (1.5-7.7); Eosinophil % 1.4 %; Hematocrit 27 % (42-52); Lymphocyte % 5.5 %; Mean Corpuscular HGB Conc 34 g/dL (31-36); Mean Corpuscular Hemoglobin 30 pg (27-31); Mean Corpuscular Volume 88 fL (80-94); Platelet Count 172 10^3/uL (150-450); Red Blood Count 3.05 10^6 /uL (4.18-5.48); Red Cell Distribution Width 15 % (10.5-15); White Blood Count 7.4 10^3/uL (3.5-10.8)
[2018-09-02 06:20] LABS: C Reactive Protein 128.47 mg/L (<8.01); EGFR African American 127.4 (>60); EGFR Non-African American 105.3 (>60)
[2018-09-02] MEDS: Docusate CAP* 100 MG PO SCH ×2 (08:38→20:50)
[2018-09-02] MEDS: Apixaban* 2.5 MG TAB PO SCH ×2 (08:38→20:50)
[2018-09-02] MEDS: Valsartan TAB* 160 MG PO SCH (08:38)
[2018-09-02] MEDS: Hydrochlorothiazide TAB* 25 MG PO SCH (08:38)
[2018-09-02] MEDS: DOXYcycline CAP(*) 100 MG PO SCH ×2 (08:38→20:49)
[2018-09-02] MEDS: amLODIPine TAB* 5 MG PO SCH (08:38)
[2018-09-02] MEDS: Acetaminophen TAB* 325 MG PO PRN (08:41)
--- NOTE | 2018-09-02 11:19 | PN ---
Progress Note - Progress Note Date of Service: 09/02/18 SOAP: Subjective: []Pt seen OOB in chair, he feels well, knee pain controlled with tylenol. Denies fever, chills, CP, SOB, dizziness, nausea. Objective: []General: Appears well. NAD LLE: Left knee dressing changed, incision CDI without discharge and without erythema. Thigh soft, DF/PF intact, DP2+, sensation intact to light touch distally. Calves supple and nontender without erythema, edema or papable cords Assessment: []POD #2 Left knee I&D with poly exhcange Plan: D/C to [facility] on doxycycline x 2 weeks per ID as long as there is no culture growth. Lab needs to hold culture at least 10 days to eval for further growth, discussed with lab and culture will be held 8 weeks. PT/OT, WBAT Eliquis 2.5 mg BID for DVT ppx Vital Signs Temp 98.8 F 09/02/18 07:14 Pulse 77 09/02/18 07:14 Resp 18 09/02/18 07:25 BP 128/63 09/02/18 07:14 Pulse Ox 98 09/02/18 07:28 Intake & Output 09/01/18 09/02/18 09/02/18 18:59 06:59 18:59 Intake Total 1325 1330 520 Output Total 1100 400 475 Balance 225 930 45 Intake: IV Fluids 475 LR 475 Oral 850 1330 520 Output: Urine 1100 400 475 Other: # Bowel Movements 1 Estimated Stool Amount Medium Laboratory Last Values WBC 7.4 10^3/uL (3.5-10.8) 09/02/18 05:25 RBC 3.05 10^6 /uL (4.18-5.48) L 09/02/18 05:25 Hgb 9.0 g/dL (14.0-18.0) L 09/02/18 05:25 Hct 27 % (42-52) L 09/02/18 05:25 MCV 88 fL (80-94) 09/02/18 05:25 MCH 30 pg (27-31) 09/02/18 05:25 MCHC 34 g/dL (31-36) 09/02/18 05:25 RDW 15 % (10.5-15) 09/02/18 05:25 Plt Count 172 10^3/uL (150-450) 09/02/18 05:25 MPV 8.0 fL (7.4-10.4) 09/02/18 05:25 Neut % (Auto) 80.4 % 09/02/18 05:25 Lymph % (Auto) 5.5 % 09/02/18 05:25 [place] % (Auto) 12.3 % 09/02/18 05:25 Eos % (Auto) 1.4 % 09/02/18 05:25 Baso % (Auto) 0.4 % 09/02/18 05:25 Absolute Neuts (auto) 5.9 10^3/ul (1.5-7.7) 09/02/18 05:25 Absolute Lymphs (auto) 0.4 10^3/ul (1.0-4.8) L 09/02/18 05:25 Absolute Monos (auto) 0.9 10^3/ul (0-0.8) H 09/02/18 05:25 Absolute Eos (auto) 0.1 10^3/ul (0-0.6) 09/02/18 05:25 Absolute Basos (auto) 0.0 10^3/ul (0-0.2) 09/02/18 05:25 Absolute Nucleated RBC 0.0 10^3/ul 09/02/18 05:25 Nucleated RBC % 0.0 09/02/18 05:25 ESR 52 mm/Hr (0-19) H 08/29/18 22:47 INR (Anticoag Therapy) 1.33 (0.82-1.09) H 08/30/18 17:36 APTT 30.8 seconds (26.0-36.3) 08/30/18 17:36 Sodium 138 mmol/L (135-145) 09/01/18 05:14 Potassium 3.5 mmol/L (3.5-5.0) 09/01/18 05:14 Chloride 105 mmol/L (101-111) 09/01/18 05:14 Carbon Dioxide 26 mmol/L (22-32) 09/01/18 05:14 Anion Gap 7 mmol/L (2-11) 09/01/18 05:14 BUN 14 mg/dL (6-24) 09/02/18 05:25 Creatinine 0.72 mg/dL (0.67-1.17) 09/02/18 05:25 Est GFR ( Amer) 127.4 (>60) 09/02/18 05:25 Est GFR (Non-Af Amer) 105.3 (>60) 09/02/18 05:25 BUN/Creatinine Ratio 17.6 (8-20) 09/01/18 05:14 Glucose 120 mg/dL (70-100) H 09/01/18 05:14 Lactic Acid 0.9 mmol/L (0.5-2.0) 08/29/18 22:47 Calcium 8.3 mg/dL (8.6-10.3) L 09/01/18 05:14 Magnesium 1.9 mg/dL (1.9-2.7) 08/30/18 06:10 C-Reactive Protein 128.47 mg/L (<8.01) H 09/02/18 05:25 Urine Color Yellow 08/30/18 13:00 Urine Appearance Cloudy 08/30/18 13:00 Urine pH 6.0 (5-9) 08/30/18 13:00 Ur Specific [place] 1.016 (1.010-1.030) 08/30/18 13:00 Urine Protein Negative (Negative) 08/30/18 13:00 Urine Ketones Negative (Negative) 08/30/18 13:00 Urine Blood 1+ (Negative) A 08/30/18 13:00 Urine Nitrate Negative (Negative) 08/30/18 13:00 Urine Bilirubin Negative (Negative) 08/30/18 13:00 Urine Urobilinogen Negative (Negative) 08/30/18 13:00 Ur Leukocyte Esterase 3+ (Negative) A 08/30/18 13:00 Urine WBC (Auto) 3+(>20/hpf) (Absent) A 08/30/18 13:00 Urine RBC (Auto) Trace(0-2/hpf) (Absent) 08/30/18 13:00 Urine Bacteria Absent (Absent) 08/30/18 13:00 Urine Glucose Negative (Negative) 08/30/18 13:00 Vancomycin Trough 8.1 mcg/mL 08/31/18 13:20 Microbiology 08/31/18 10:25 Gram Stain - Final Body Fluid - Knee Left Body Fluid Culture - Preliminary No Growth Day 2 08/31/18 10:25 Anaerobic Culture - Preliminary Wound - Knee Left No Growth Day 2 08/31/18 10:25 Gram Stain - Final Knee Left Wound Culture - Preliminary No Growth Day 2 08/29/18 22:38 Aerobic Blood Culture - Preliminary Blood Venous No Growth Day 3 Anaerobic Blood Culture - Preliminary No Growth Day 3 08/29/18 22:47 Aerobic Blood Culture - Preliminary Blood Venous No Growth Day 3 Anaerobic Blood Culture - Preliminary No Growth Day 3
[2018-09-02] MEDS ORDERED: Vancomycin Trough Check NOTE FOLLOW UP ONE (12:30)
--- NOTE | 2018-09-03 03:11 | DS ---
CC: Dr. Salas; Dr. Suarez; Dr. Doss * DISCHARGE SUMMARY: DATE OF ADMISSION: 08/29/18 DATE OF ANTICIPATED DISCHARGE: 09/03/18 PRIMARY CARE PROVIDER: Dr. Salas. CONDITION AT DISCHARGE: Stable. The patient is planned to be discharged to [facility]. DISCHARGE DIAGNOSIS: Systemic inflammatory response syndrome with so far no known source, status post surgery recently, operated on knee on 08/31/[address] Suarez with open irrigation and debridement of the left knee and replacement of polyethylene liner exchange. SECONDARY DIAGNOSES: 1. Hypertension. 2. Iron deficiency anemia. 3. Benign prostatic hyperplasia. 4. Nephrolithiasis. 5. Osteoarthritis. 6. Pseudogout. 7. History of polymyalgia rheumatica. 8. Left total knee arthroplasty, originally performed by Dr. Suarez on 07/24/18. MEDICATIONS AT DISCHARGE: Include: 1. Acetaminophen 1000 mg b.i.d. 2. Norvasc 5 mg daily. 3. Ferrous sulfate 143 mg b.i.d. 4. Hydrochlorothiazide with valsartan 160/25 two tabs in a.m. 5. Colace 100 mg b.i.d. p.r.n. 6. Doxycycline 100 mg b.i.d. for a total of 14 days and stop. LABORATORY DATA AND STUDIES PERFORMED DURING THE HOSPITAL STAY: On 09/02/18, white blood cell count of 7.4, hemoglobin 9.0, hematocrit 27, and platelets of 172. Sodium was 138, potassium 3.5, chloride 105, carbon dioxide 56, BUN 12, creatinine 0.68. C-reactive protein first time reported at 96.3 on 08/31/18, and on 09/02/18, it was 128.4. Synovial fluid analysis obtained on 08/29/18 showed wbc's of 3710, rbc's of 171, 349, 94% of neutrophils, 6% of lymphocytes, total protein of 4.6, glucose of 72. The fluid was a little bloody. Remaining microbiology tests showed negative blood culture so far. Fungal culture of the wound of the left knee is still pending at the time of dictation. Urine cultures, no growth. Joint fluid aspirated from the left knee prior to date of surgery on 08/29/18 also shows no growth. Urine cultures obtained on 09/02/18 shows no growth, although interestingly enough urine culture obtained on 08/28/18 showed over 100,000 colonies of E. coli. On 09/02/18, white blood cell count of 7.4, hemoglobin 9.7, hematocrit of 27, and platelets of 172. On 09/02/18, BUN was 14, creatinine of 0.72. CONSULTATIONS DURING THE HOSPITAL STAY: Included Dr. Suarez, orthopedic surgeon. PROCEDURES PERFORMED: Included left knee washout and liner exchange on . HOSPITALIZATION COURSE: Solo Carcamo is a 77-year-old male who presented with fevers of 101 degrees. The patient basically had no other symptoms. The left knee was evaluated as outpatient on 08/28/18, and fluid was obtained that was not growing anything so far. The patient was admitted to the hospital on . We were unable to find a source of infection at this point, the patient went for a washout of his left knee performed by Dr. Suarez and exchange of liner. So far, all the cultures are negative. Dr. Suarez curbsided infectious disease specialist, who recommended 2 weeks of doxycycline. Of note, the patient's Lyme testing is still pending at the time of dictation, but the patient stated that his life had been pretty sedentary since his surgery on his knee in June of 2018, and he has not experienced any tic bite. The patient is being planned to be discharged to [facility] tomorrow on 09/03/18, and his discharge is prepared in advance. PHYSICAL EXAM AT THE TIME OF DICTATION: Blood pressure of 128/60, heart rate of 69 and regular, respiratory rate 18, oxygen saturation 98% on room air, temperature 97.6. General: The patient is a very pleasant 77-year-old male who is in no acute distress. Alert, awake, and oriented x3. HEENT: Head: Atraumatic, normocephalic. Eyes: Pupils are equal and reactive to light and accommodation. Oropharynx is clear. Mucosa is moist. Neck: Supple. No JVD. No bruits bilaterally. Cardiovascular: Regular rate and rhythm. No murmur. Respiratory: Clear to auscultation bilaterally. Abdomen: Soft and nontender. Bowel sounds are present in all 4 quadrants. Extremities: There is trace of postop edema, otherwise no pedal edema bilaterally. There is no clubbing or cyanosis. Pulses are +2 bilaterally. Post-operative knee, the postoperative dressings were not removed. There is no evidence of skin infection of surrounding area. Neuro Evaluation: Speech is clear. Cranial nerves II through XII grossly intact. Motor strength is 5/5 bilaterally. Please note that this is a short summary of the patient's hospital stay. Please refer to further medical records for details. CONDITION ON DISCHARGE: Stable. TIME SPENT: Approximately 40 minutes was spent on the patient's discharge. [id number]/[facility] #: [id number] MTDD
[2018-09-03 07:58] VITALS: BP 105/89
[2018-09-03] MEDS: Hydrochlorothiazide TAB* 25 MG PO SCH (08:29)
[2018-09-03] MEDS: Valsartan TAB* 160 MG PO SCH (08:29)
[2018-09-03] MEDS: DOXYcycline CAP(*) 100 MG PO SCH (08:30)
[2018-09-03] MEDS: Apixaban* 2.5 MG TAB PO SCH (08:30)
[2018-09-03] MEDS: Docusate CAP* 100 MG PO SCH (08:30)
[2018-09-03] MEDS: Acetaminophen TAB* 325 MG PO PRN (08:30)
[2018-09-03] MEDS: amLODIPine TAB* 5 MG PO SCH (08:30)
--- NOTE | 2018-09-03 09:07 | PN ---
Progress Note - Progress Note Date of Service: 09/03/18 SOAP: Subjective: []Pt seen at bedside. He feels well without fever, chills, CP, SOB, dizziness, nausea. Knee pain is well controlled. Objective: []General: Appears well, NAD LLE: Left knee dressing changed, incision CDI without discharge and without erythema. + ecchymosis of the anterior knee. Thigh soft, DF/PF intact, DP2+, sensation intact to light touch distally. Calves supple and nontender without erythema, edema or palpable cords Assessment: []POD #3 Left knee I&D with poly exchange Plan: D/C to [facility] on doxycycline x 2 weeks PT/OT, WBAT Eliquis 2.5 mg BID for DVT ppx Vital Signs Temp 98.5 F 09/03/18 07:48 Pulse 54 09/03/18 07:48 Resp 15 09/03/18 07:48 BP 105/89 09/03/18 07:48 Pulse Ox 93 09/03/18 07:48 Intake & Output 09/02/18 09/03/18 09/03/18 18:59 06:59 18:59 Intake Total 1050 1000 Output Total 1550 625 400 Balance -500 375 -400 Intake: Oral 1050 1000 Output: Urine 1300 625 400 Hernandez 250 Laboratory Last Values WBC 7.4 10^3/uL (3.5-10.8) 09/02/18 05:25 RBC 3.05 10^6 /uL (4.18-5.48) L 09/02/18 05:25 Hgb 9.0 g/dL (14.0-18.0) L 09/02/18 05:25 Hct 27 % (42-52) L 09/02/18 05:25 MCV 88 fL (80-94) 09/02/18 05:25 MCH 30 pg (27-31) 09/02/18 05:25 MCHC 34 g/dL (31-36) 09/02/18 05:25 RDW 15 % (10.5-15) 09/02/18 05:25 Plt Count 172 10^3/uL (150-450) 09/02/18 05:25 MPV 8.0 fL (7.4-10.4) 09/02/18 05:25 Neut % (Auto) 80.4 % 09/02/18 05:25 Lymph % (Auto) 5.5 % 09/02/18 05:25 [place] % (Auto) 12.3 % 09/02/18 05:25 Eos % (Auto) 1.4 % 09/02/18 05:25 Baso % (Auto) 0.4 % 09/02/18 05:25 Absolute Neuts (auto) 5.9 10^3/ul (1.5-7.7) 09/02/18 05:25 Absolute Lymphs (auto) 0.4 10^3/ul (1.0-4.8) L 09/02/18 05:25 Absolute Monos (auto) 0.9 10^3/ul (0-0.8) H 09/02/18 05:25 Absolute Eos (auto) 0.1 10^3/ul (0-0.6) 09/02/18 05:25 Absolute Basos (auto) 0.0 10^3/ul (0-0.2) 09/02/18 05:25 Absolute Nucleated RBC 0.0 10^3/ul 09/02/18 05:25 Nucleated RBC % 0.0 09/02/18 05:25 ESR 52 mm/Hr (0-19) H 08/29/18 22:47 INR (Anticoag Therapy) 1.33 (0.82-1.09) H 08/30/18 17:36 APTT 30.8 seconds (26.0-36.3) 08/30/18 17:36 Sodium 138 mmol/L (135-145) 09/01/18 05:14 Potassium 3.5 mmol/L (3.5-5.0) 09/01/18 05:14 Chloride 105 mmol/L (101-111) 09/01/18 05:14 Carbon Dioxide 26 mmol/L (22-32) 09/01/18 05:14 Anion Gap 7 mmol/L (2-11) 09/01/18 05:14 BUN 14 mg/dL (6-24) 09/02/18 05:25 Creatinine 0.72 mg/dL (0.67-1.17) 09/02/18 05:25 Est GFR ( Amer) 127.4 (>60) 09/02/18 05:25 Est GFR (Non-Af Amer) 105.3 (>60) 09/02/18 05:25 BUN/Creatinine Ratio 17.6 (8-20) 09/01/18 05:14 Glucose 120 mg/dL (70-100) H 09/01/18 05:14 Lactic Acid 0.9 mmol/L (0.5-2.0) 08/29/18 22:47 Calcium 8.3 mg/dL (8.6-10.3) L 09/01/18 05:14 Magnesium 1.9 mg/dL (1.9-2.7) 08/30/18 06:10 C-Reactive Protein 128.47 mg/L (<8.01) H 09/02/18 05:25 Urine Color Yellow 08/30/18 13:00 Urine Appearance Cloudy 08/30/18 13:00 Urine pH 6.0 (5-9) 08/30/18 13:00 Ur Specific [place] 1.016 (1.010-1.030) 08/30/18 13:00 Urine Protein Negative (Negative) 08/30/18 13:00 Urine Ketones Negative (Negative) 08/30/18 13:00 Urine Blood 1+ (Negative) A 08/30/18 13:00 Urine Nitrate Negative (Negative) 08/30/18 13:00 Urine Bilirubin Negative (Negative) 08/30/18 13:00 Urine Urobilinogen Negative (Negative) 08/30/18 13:00 Ur Leukocyte Esterase 3+ (Negative) A 08/30/18 13:00 Urine WBC (Auto) 3+(>20/hpf) (Absent) A 08/30/18 13:00 Urine RBC (Auto) Trace(0-2/hpf) (Absent) 08/30/18 13:00 Urine Bacteria Absent (Absent) 08/30/18 13:00 Urine Glucose Negative (Negative) 08/30/18 13:00 Vancomycin Trough 4.6 mcg/mL 09/02/18 12:49
== END 2018-09-03 10:42 | DRG 486 ==
LOC: ED 21:26 → MED 22:59 → OBSVTOIN 08-30 14:00 → SSU 08-31 12:47
PROVIDERS: ADMIT Hospitalist; ATTEND Internal Medicine
PROC: 0SUW09Z Supplement Left Knee Joint, Tibial Surface with Liner, Open Approach (ICD-10-PCS; 2018-08-31)
PROC: 0SPD09Z Removal of Liner from Left Knee Joint, Open Approach (ICD-10-PCS; principal; 2018-08-31 08:00)
DX: T84.54XA Infection and inflammatory reaction due to internal left knee prosthesis, initial encounter (principal); R65.10 Systemic inflammatory response syndrome (SIRS) of non-infectious origin without acute organ dysfunction; I10 Essential (primary) hypertension; D50.9 Iron deficiency anemia, unspecified; N20.0 Calculus of kidney; I95.9 Hypotension, unspecified; N40.1 Benign prostatic hyperplasia with lower urinary tract symptoms; R35.0 Frequency of micturition; R50.82 Postprocedural fever; M11.20 Other chondrocalcinosis, unspecified site; M35.3 Polymyalgia rheumatica; Z96.652 Presence of left artificial knee joint; Z87.442 Personal history of urinary calculi; Z82.49 Family history of ischemic heart disease and other diseases of the circulatory system; Z80.0 Family history of malignant neoplasm of digestive organs; Z80.8 Family history of malignant neoplasm of other organs or systems; Z72.89 Other problems related to lifestyle; Y79.2 Prosthetic and other implants, materials and accessory orthopedic devices associated with adverse incidents; Y92.9 Unspecified place or not applicable
CPT/HCPCS: 36415; 76770; 80048; 80202; 81003; 81015; 82565; 83605; 83735; 84520; 85025; 85610; 85652; 85730; 86140; 86618; 87040; 87070; 87073; 87086; 87102; 87205; 88300; 93005; 99284; A9270-GY; C1776; G0378; G8978-GP-CI; G8978-GP-CK; G8979-GP-CI; G8980-GP-CI; J0692; J1170; J1240; J1644; J2250; J2405; J2704; J3010; J3370; J3490